=== PATIENT | female | born 1975 ===

== ENCOUNTER 2018-01-23 23:51 | Inpatient (IN) | payer MEDICAID, OTHER ==
--- NOTE | 2018-01-23 23:58 | ED PDOC ---
Arrival/HPI - General Time Seen by Provider: 01/23/18 23:53 Historian: Patient - History of Present Illness Narrative History of Present Illness (Text): 01/23/18 23:54 Tee Martinez is a 42 year female who presents to the Emergency department transferred from [facility] for depression and suicidal ideation tonight. Patient was medically cleared at previous institution and accepted for psychiatric admission by psychiatrist community liaison officer. Patient states she still feels depressed. Patient denies any homicidal ideation, fever, chills, chest pain, shortness of breath, nausea, vomiting, diarrhea, headache, dizziness, or any other complaints. 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 HX: LUMBAR DISC DEGENERATION - Gastrointestinal Hx Gastrointestinal Disorders: Yes Hx Gastroesophageal Reflux: Yes - Surgical History Hx Orthopedic Surgery: Yes (LEFT ANKLE FRACTURE) Hx Tubal Ligation: Yes - Anesthesia Hx Anesthesia: Yes Family/Social History - Physician Review Nursing Documentation Reviewed: Yes Family/Social History: Unknown Family HX Smoking Status: Light Smoker < 10 Cigarettes Daily Allergies/Home Meds Allergies/Adverse Reactions: Allergies No Known Allergies Allergy (Verified 09/21/17 07:48) Home Medications: Home Meds Medication Instructions Recorded Confirmed oxyCODONE [oxyCODONE Immediate 15 mg PO 09/21/17 Release Tab] Review of Systems - Physician Review All systems were reviewed & negative as marked: Yes - Review of Systems Constitutional: Normal. absent: Fevers Eyes: Normal ENT: Normal Respiratory: Normal. absent: SOB, Cough Cardiovascular: Normal. absent: Chest Pain Gastrointestinal: Normal. absent: Abdominal Pain, Diarrhea, Nausea, Vomiting Genitourinary Female: Normal. absent: Dysuria, Frequency, Hematuria, Urine Output Changes Musculoskeletal: Normal. absent: Back Pain, Neck Pain Skin: Normal Neurological: Normal. absent: Headache, Dizziness Endocrine: Normal Hemo/Lymphatic: Normal Psychiatric: Depression, Suicidal Ideation Physical Exam Vital Signs Reviewed: Yes Vital Signs Temp Pulse Resp BP Pulse Ox 01/23/18 23:57 98.2 F 73 18 144/65 95 Temperature: Afebrile Blood Pressure: Normal Pulse: Regular Respiratory Rate: Normal Appearance: Positive for: Well-Appearing, Non-Toxic, Comfortable Pain Distress: None Mental Status: Positive for: Alert and Oriented X 3 - Systems Exam Head: Present: Atraumatic, Normocephalic Pupils: Present: PERRL Extroacular Muscles: Present: EOMI Conjunctiva: Present: Normal Mouth: Present: Moist Mucous Membranes Neck: Present: Normal Range of Motion Respiratory/Chest: Present: Clear to Auscultation, Good Air Exchange. No: Respiratory Distress, Accessory Muscle Use Cardiovascular: Present: Regular Rate and Rhythm, Normal S1, S2. No: Murmurs Abdomen: Present: Normal Bowel Sounds. No: Tenderness, Distention, Peritoneal Signs Back: Present: Normal Inspection Upper Extremity: Present: Normal Inspection. No: Cyanosis, Edema Lower Extremity: Present: Normal Inspection. No: Edema Neurological: Present: GCS=15, CN II-XII Intact, Speech Normal Skin: Present: Warm, Dry, Normal Color. No: Rashes Psychiatric: Present: Alert, Oriented x 3, Normal Insight, Normal Concentration Medical Decision Making ED Course and Treatment: 01/23/18 23:55 Impression: 42 year old female transferred from [facility] for depression and suicidal ideation tonight. Differential Diagnosis included but are not limited to: depression Plan: -- Admission to [facility] Progress Notes: Patient was medically cleared at previous institution and accepted for psychiatric admission by psychiatrist community liaison officer. Pt will be admitted to [facility] for depression and suicidal ideation under Dr. Regan's service. Pt agreeable with plan. - Scribe Statement The provider has reviewed the documentation as recorded by the Ludivina Valdez Provider Scribe Attestation: All medical record entries made by the Scribe were at my direction and personally dictated by me. I have reviewed the chart and agree that the record accurately reflects my personal performance of the history, physical exam, medical decision making, and the department course for this patient. I have also personally directed, reviewed, and agree with the discharge instructions and disposition. Disposition/Present on Arrival - Present on Arrival Any Indicators Present on Arrival: No History of DVT/PE: No History of Uncontrolled Diabetes: No Urinary Catheter: No History of Decub. Ulcer: No History Surgical Site Infection Following: None - Disposition Have Diagnosis and Disposition been Completed?: Yes Diagnosis: Depression, Suicidal ideation Disposition: HOSPITALIZED Disposition Time: 00:10 Patient Plan: Admission Condition: STABLE
[2018-01-24] MEDS ORDERED: Alum-Mag Hydrox-Simethicone Susp (30 mL) PO PRN (01:31)
[2018-01-24] MEDS ORDERED: Magnesium Hydroxide Susp 30 ml UD PO PRN (01:31)
[2018-01-24 02:27] VITALS: O2SAT 97
--- NOTE | 2018-01-24 06:10 | PCM.BM ---
<Trung Gonzalez O - Last Filed: 01/24/18 06:04> Treatment Plan Problems - Problems identified on initial assessmt depression Date Initiated: 01/24/18 Time Initiated: 01:30 Assessment reference: NA Status: Active Priority: 1 Substance abuse Date Initiated: 01/24/18 Time Initiated: 01:40 Assessment reference: NA Status: Monitor Priority: 2 Treatment assets and liabiliti Patient Assests: cooperative, ADL independent Patient Liabilities: poor support system, relationship conflicts, substance abuse - Milieu Protocol Maintain good personal hygiene: daily Encourage regular showers, daily Remind patient to perform daily oral care, daily Assist patient to perform ADL's Maintain personal safety: daily Educate patient to report safety concerns to staff, daily Monitor environment for contraband/sharps Medication safety: Monitor for expected outcome, potential side effects: daily, Assess barriers to learning: daily, Assess readiness for medication education: daily Family Contact Family involvement: Family/SO is involved Family contact: Patient agrees to contact Family contact name: Arianne Gasca - Goals for Treatment Patient goals for treatment: To get my life back Discharge/Continuing Care - Education Needs Education Needs: Patient Medication, Patient Diagnosis/Disease Process, Patient Coping Skills - Discharge Discharge Criteria: Free of Suicidal thoughts <Subha Regan A - Last Filed: 01/24/18 15:28> - Diagnosis (1) MDD (major depressive disorder) Status: Acute Interventions: 01/24/18 15:31 Psychoeducation Psychopharmacology/adjustment of medications as needed/ monitoring possible side effects Evaluate pt on daily basis Compliance with medications and follow up appointments Suicide and homicide risk assessment and prevention Relapse prevention Reduction of symptoms Improve functional status Family involvement As outpatient: cognitive behavioral therapy (2) LUISANA (generalized anxiety disorder) Status: Acute Interventions: 01/24/18 15:31 Psychoeducation Psychopharmacology/adjustment of medications as needed/ monitoring possible side effects Evaluate pt on daily basis Discussion of importance of being compliant with medications and follow up appointments Suicide and homicide risk assessment and prevention, coping strategies, safety plan Reduction of symptoms Relaxation techniques and breathing exercises Improve functional status Family involvement Cognitive behavioral therapy as outpatient (3) Panic disorder Status: Acute Interventions: 01/24/18 15:31 Psychoeducation Psychopharmacology/adjustment of medications as needed/ monitoring possible side effects Evaluate pt on daily basis Discussion of importance of being compliant with medications and follow up appointments Suicide and homicide risk assessment and prevention, coping strategies, safety plan Reduction of symptoms Relaxation techniques and breathing exercises Improve functional status Family involvement Cognitive behavioral therapy as outpatient (4) Marijuana abuse Status: Acute Interventions: 01/24/18 15:31 education counseling <Mary Wills Y - Last Filed: 01/25/18 08:02> Family Contact Family contact name: Arianne Gasca(mother) Neil Lopez(daughter) Family contacted how many times per week?: 2 - Outside Agency [employer] Care involvment: Information-sharing Agency contact name: [employer]
[2018-01-24 07:41] LABS: GLUCOSE,FASTING 127 mg/dL (65-110); HDL CHOLESTEROL 43 mg/dL (29-60)
[2018-01-24 07:49] LABS: LDL CHOLESTEROL 101 mg/dL (0-129)
[2018-01-24] MEDS: Lidocaine 5% Patch TD SCH (14:24)
--- NOTE | 2018-01-24 15:27 | PCM.PSYCH ---
Initial Psychiatric Evaluation - Initial Psychiatric Evaluation Type of Admission: Voluntary Legal Status: Capacity (pt has capacity to sign consent for treatment) Chief Complaint (in patient's own words): "I was not doing well, I took medications to calm myself, I feel stupid now, I should have known better..." Patient's Reaction to Hospitalization: pt was transferred from [facility] for evaluation of depressive symptoms possible suicidal attempt. History of Present Illness and Precipitating Events: shortly patient is 42-year old Female, with reported history of depression and anxiety, denied previous psychiatric admissions, self reported suicidal attempt at age of 11, was transferred from the [facility] where pt was brought by her sister for evaluation of intentional overdose on Seroquel, r/o suicidal attempt, pt lives with her mother, pt has multiple medical problems, pt is in the process of obtaining for disability, pt currently under care of psychiatrist who prescribed zyprexa and Lexapro as well as Ambien. Pt needs further evaluation and stabilization, medication adjustment. pt was seen and examined, transfer paper from [facility] reviewed, labs reviewed (UA was positive for cannabis, pt is not , CBC and CMP wnl). At the treatment team meeting, presented to have acceptable personal hygiene, obese, seems to be careless about her appearance, pt has good ADLs, was emotionally labile, pt was smiling then was very tearful. pt said she was compliant with zyprexa and Lexapro but "I asked my doctor to change it, but he refused", pt said that one week ago she broke up with her boyfriend of 4years, pt said she was not able to work because of her Rheumatoid arthritis and because of that she was struggling financially. pt said for the past week she was feeling more depressed, hopeless, helpless, worthless, guilty , "I was not doing well, I was not able to sleep at all", pt said her mind was racing, pt was not able to relax. pt said she was feeling more anxious than usual, "I started to have some twitching, it is due to my anxiety", pt also said her panic attacks from every other day became "daily". pt denied h/o abuse, denied experience of any trauma. pt said that she was compliant with meds, but "still I was not able to relax", pt said her mother also has h/o depression and she was prescribed Seroquel 25mg , "I started to take one tablet at the time, I wanted to relax, but not able to ", pt said she did not have intent or plan to kill self or harm self, pt said she took more than 5 pills then pt said "I was very confused, I remember my mother screamed at me, then she called my son, he came over, screamed at me too , now I am afraid he will not let my grand son to visit me" (as per [facility] pt overdosed after argument with son, but pt denied, said her son was screaming at pt after he had to know that pt overdosed on meds). pt adamantly denied that she wanted to harm/kill self. pt seems to be remorseful "I feel stupid, I should have known better". pt denied thoughts of harming self for the past 4weeks, pt reported to have one suicidal attempt at age of 11or12, "I was madly in love, my father was upset over that, I decided to overdose because my father's opinion was very important to me". pt denied psychotic symptoms, pt does not look to be responding to internal stimuli, denied hearing voices denied seeing things. no manic symptoms elicited or reported. pt reported that she smokes about one blunt of marijuana a day, pt denied any heavy drug use, denied alcohol consumption. pt smokes about 1/2 pack a day, nicotine patch offered, counseling provided. past psych h/o: PT reports her psychiatrist is Dr. Berry at [facility], one suicidal attempt see above. pt said she fills meds in [facility] [phone] meds confirmed Gabapentin 600 mg twice a daily Ambien 10 mg at the night Lexapro 20 mg daily Naproxen 550 twice a day Lisinopril and hydrochlorothiazide Lidoderm vistaril Patient was on Zyprexa 10 Lexapro 20 mg daily Zanaflex 4 mg 3 times a day pt c/o diarrhea, medical team called for consult. Past medical h/o: as per [facility] record pt had 5 suicidal attempts, but pt denied (pt seems to be a good and reliable historian). pt denied previous psychiatric admissions. Medical h/o: HTN, obesity, OA, pt is on injectable form of medication, pt had a right knee operation a week ago, L-spine disks herniations, chronic back pain. Family h/o: mother has depression. patient reports gave consent to contact her sister, Arianne Gasca and daughter , Neil Lopez([phone]). Lab Results 01/24/18 07:00: TSH 3rd Generation 0.41 L 01/24/18 07:00: Fasting Glucose 127 H, Triglycerides 112, Cholesterol 168, LDL Cholesterol Direct 101, HDL Cholesterol 43 Vital Signs Temp Pulse Resp BP Pulse Ox 01/24/18 14:25 90 174/115 H 01/24/18 07:37 98.4 F 73 20 106/65 01/24/18 02:42 97.6 F 73 20 140/69 01/24/18 01:30 75 18 135/68 97 01/23/18 23:57 98.2 F 73 18 144/65 95 Current Medications: Active Medications Generic Name Dose Route Start Last Admin Trade Name Freq PRN Reason Stop Dose Admin Acetaminophen 650 mg 01/24/18 01:31 Tylenol 325mg Tab PO Q4H PRN Pain, Mild (1-3) Al Hydrox/Mg Hydrox/Simethicone 30 ml 01/24/18 01:31 Maalox Plus 30 Ml PO DAILY PRN Upset Stomach Aripiprazole 2.5 mg 01/24/18 22:00 Abilify PO AMHS DWAYNE Fluoxetine HCl 10 mg 01/24/18 13:00 01/24/18 14:24 Prozac PO 10 mg DAILY DWAYNE Administration Gabapentin 600 mg 01/24/18 13:00 01/24/18 14:24 Neurontin PO 600 mg TID DWAYNE Administration Protocol Hydrochlorothiazide 25 mg 01/24/18 13:00 01/24/18 14:25 Hydrodiuril PO 25 mg DAILY DWAYNE Administration Lidocaine 1 ea 01/24/18 13:15 01/24/18 14:24 Lidoderm TD 1 ea DAILY DWAYNE Administration Lisinopril 20 mg 01/24/18 13:15 01/24/18 14:25 Zestril PO 20 mg DAILY DWAYNE Administration Lorazepam 0.5 mg 01/24/18 16:00 Ativan PO BID DWAYNE Protocol Magnesium Hydroxide 30 ml 01/24/18 01:31 Milk Of Magnesia PO DAILY PRN Constipation Naproxen 550 mg 01/24/18 16:00 Anaprox Ds PO BID DWAYNE Nicotine 1 patch 01/24/18 12:45 01/24/18 14:23 Nicoderm Cq TD 1 patch DAILY DWAYNE Administration Tizanidine HCl 4 mg 01/24/18 13:00 01/24/18 14:24 Zanaflex PO 4 mg TID DWAYNE Administration Tramadol HCl 50 mg 01/24/18 13:01 01/24/18 14:31 Ultram PO 50 mg TID PRN Administration severe pain >=7/10 Zolpidem Tartrate 10 mg 01/24/18 13:17 Ambien PO HS PRN Insomnia Protocol pt wants to change some meds abilify and prozac discussed with pt, risk, benefits and alternatives discussed with pt. Past Psychiatric History - Past Psychiatric History Previous Treatment History: None Prior Professional Help: see HPI Prior Psychiatric Treatment: see HPI At what hospital: see HPI Duration: see HPI Nature of Treatment: see HPI Explanation of prior treatment: see HPI History of Abuse: see HPI pt denied any abuse History of ETOH/Drug Use: see HPI History of Family Illness: see HPI Pertinent Medical Hx (Current Medical&Sleep Prob, Allergies): Allergies Allergy/AdvReac Type Severity Reaction Status Date / Time No Known Allergies Allergy Verified 01/24/18 05:24 oxyCODONE [oxyCODONE Immediate Release Tab] 15 mg PO BID PRN 09/21/17 pt said that she was prescribed oxycodone after her knee surgery, but not any longer. Review of Systems - Review of Systems Systems not reviewed;Unavailable: Acuity of Condition - EENT Eyes: As Per HPI Ears: As Per HPI Nose/Mouth/Throat: As Per HPI - Breasts Breasts: As Per HPI - Cardiovascular Cardiovascular: As Per HPI - Respiratory Respiratory: As Per HPI - Gastrointestinal Gastrointestinal: As Per HPI - Genitourinary Genitourinary: As Per HPI - Reproductive: Female Reproductive:Female: As Per HPI - Menstruation Menstruation: As Per HPI - Musculoskeletal Musculoskeletal: As Par HPI - Integumentary Integumentary: As Per HPI - Neurological Neurological: As Per HPI - Psychiatric Psychiatric: As Per HPI - Endocrine Endocrine: As Per HPI - Hematologic/Lymphatic Hematologic: As Per HPI Mental Status Examination - Personal Presentation Personal Presentation: Looks stated age - Affect Affect: Other (labile) - Motor Activity Motor Activity: Calm - Reliability in Providing Information Reliability in Providing Information: Fair - Speech Speech: Organized - Mood Mood: Depressed, Anxious - Formal Thought Process Formal Thought Process: No Impairment - Obsessions/Compulsions Obsessions: None Compulsions: None - Cognitive Functions Orientation: Person, Place, Situation, Time Sensorium: Alert Attention/Concentration: Easily distracted Estimate of Intelligence: Average Judgement: Intact, as evidence by: Insight regarding need for hospitalization - Risk Risk: Self-mutilation, Diminished functioning - Strength & Assets Inventory Strength & Assets Inventory: Family support, Spiritual affiliations, Life experience, Cooperative - Limitations Limitations: Other (medical issues) DSM 5 DX - DSM 5 DSM 5 Diagnosis: r/o MDD r/o adjustment disorder r/o bipolar spectrum r/o panic disorder with agoraphobia r/o LUISANA cannabis abuse - Recommended/Plan of Treatment Treatment Recommendations and Plan of Treatment: Milieu/structure/supportive therapy Medical consult was called for diarrhea, no nausea, no vomiting medications confirmed by pharmacy see HPI zyperxa and lexapro d/c prozac 10mg po daily for depression and anxiety abilify for mood stabilization ambien will be continued ativan 0.5mg po bid for anxiety will d/c vistaril will call orthopedic doctor pt is on injectable form of meds in her knee weekly SW consultation for discharge plan and social issues Family involvement Follow up on labs Will monitor closely Pt was educated about risk/benefits and alternatives of medications, coping strategies (safety plan, suicide prevention), relapse prevention, importance of follow up with psychiatrist and therapist, stay away from drugs/alcohol/smoking Projected ELOS: 7days Prognosis: guarded Discharge Plan and Discharge Criteria: Pt will be not depressed or manic, will be more hopeful, will be not psychotic or anxious, will be not having thoughts of harming self or others, will be tolerating medications well, will not have major side effects, will be able to function, will not pose threat to self or others. - Smoking Cessation Smoking Cessation Initiated: Yes
[2018-01-24] MEDS: Naproxen 550 mg Tab PO SCH (17:33)
--- NOTE | 2018-01-25 03:57 | CON ---
DATE: 01/24/2018 ORTHOPEDIC CONSULT LOCATION: Room number is 514, bed 1. REQUESTED BY: Subha Regan MD HISTORY OF PRESENT ILLNESS: The patient is a 42-year-old female admitted on 01/24/2018 with pain in her right worse than left knee. Past history is that she has rheumatoid arthritis and psoriatic arthritis. She has been postop about 3-4 weeks for arthroscopy of her right knee for which she has had a torn meniscus. There is no undue swelling and that she has pain when she ambulates and has to take medicines for rheumatoid arthritis. I am going to just get standing x-rays of both knees to see how much joint space narrowing she has because she said she had meniscus tear from surgery and I removed it and she is currently 42 years old, but the knees clinically look fine, is little overweight. We are going to send her for therapy. I am not going to inject the knees because of the surgery she just had and the past history of rheumatoid arthritis and was on immunosuppressives at times. So, send her to therapy, investigate the knee pain with x-rays standing and follow her with physical therapy. FINAL DIAGNOSES: Rheumatoid arthritis with knee pain, right worse than the left. We are going to do x-rays of both knees and physical therapy. Shar Shelby DO
[2018-01-25 07:47] LABS: BASO # 0.03 K/mm3 (0.0-2.0); BASO % 0.3 % (0.0-3.0); EOS # 0.2 (0.0-0.7); EOS % 2.5 % (1.5-5.0); GRAN # 4.83 (1.4-6.5); GRAN % 54.9 % (50.0-68.0); LYMPH % 34.2 % (22.0-35.0); MEAN CORPUSCULAR HEMOGLOBIN 30.1 pg (25.0-35.0); MEAN CORPUSCULAR HGB CONC 33.1 g/dl (31.0-37.0); MEAN PLATELET VOLUME 10.3 fl (7.0-11.0); MONO # 0.7 (0.1-0.6); MONO % 8.1 % (1.0-6.0); RBC 4.65 10^6/uL (3.5-6.1); WHITE BLOOD COUNT 8.8 10^3/ul (4.5-11.0)
[2018-01-25 08:01] LABS: ALB/GLOB RATIO 1.2 (1.1-1.8); ALBUMIN 4.3 g/dL (3.0-4.8); ALT/SGPT 64 U/L (7-56); AST/SGOT 36 U/L (14-36); BLOOD UREA NITROGEN 11 mg/dL (7-21); CALCIUM 9.6 mg/dL (8.4-10.5); GFR AFRICAN-AMERICAN > 60; GFR NON-AFRICAN AMERICAN > 60
[2018-01-25] MEDS: Naproxen 550 mg Tab PO SCH ×2 (08:44→17:38)
[2018-01-25] MEDS: Lidocaine 5% Patch TD SCH (08:46)
--- NOTE | 2018-01-25 09:53 | RAD ---
PROCEDURE: AP standing bilateral knees HISTORY: pain knees bilat COMPARISON: None available TECHNIQUE: Single AP standing radiograph of each knee submitted. FINDINGS: Mild narrowing of the medial joint compartment of the right knee. No significant narrowing of the medial compartment of the left knee. Lateral compartment preserved bilaterally. Grossly limited examination. Unable to evaluate patellofemoral articulation. Unable to evaluate for joint effusion. IMPRESSION: Mild medial osteoarthritis of the right knee.
[2018-01-25 10:36] LABS: FREE T4 0.91 ng/dL (0.78-2.19)
--- NOTE | 2018-01-25 13:39 | PCM.PYCHPN ---
Psychiatric Progress Note - Psychiatric Progress Note Patient seen today, length of contact: 30min Patient Chief Complaint: "I am doing little better, my family came over yesterday, it was a good visit" Problems Identified/Issues Discussed: Suicide/ homicide prevention, past psychiatric h/o, current psychiatric symptoms , medical problems, risk/benefits and alternatives of medications, medications compliance, coping strategies, substance abuse h/o, relapse prevention, importance of follow up with psychiatrist and therapist, discharge plan. Medical Problems: HTN, obesity, OA, pt is on injectable form of medication, pt had a right knee operation a week ago, L-spine disks herniations, chronic back pain. pt c/o diarrhea, pt was seen by medical team, consult appreciated Diagnostic Results: 01/25/18 07:20 01/25/18 07:20 Lab Results 01/25/18 08:00: Free T4 0.91, TSH 3rd Generation 0.60 01/25/18 07:20: Sodium 140, Potassium 3.8, Chloride 105, Carbon Dioxide 23, Anion Gap 16, BUN 11, Creatinine 0.6 L, Est GFR ( Amer) > 60, Est GFR ( Non-Af Amer) > 60, Random Glucose 133 H, Calcium 9.6, Total Bilirubin 0.6, AST 36, ALT 64 H, Alkaline Phosphatase 112, Total Protein 7.8, Albumin 4.3, Globulin 3.5, Albumin/Globulin Ratio 1.2 01/25/18 07:20: WBC 8.8, RBC 4.65, Hgb 14.0, Hct 42.3, MCV 91.0, MCH 30.1, MCHC 33.1, RDW 14.0, Plt Count 291, MPV 10.3, Gran % 54.9, Lymph % (Auto) 34.2, [place] % (Auto) 8.1 H, Eos % (Auto) 2.5, Baso % (Auto) 0.3, Gran # 4.83, Lymph # (Auto ) 3.0, [place] # (Auto) 0.7 H, Eos # (Auto) 0.2, Baso # (Auto) 0.03 01/24/18 07:00: RPR Nonreactive 01/24/18 07:00: TSH 3rd Generation 0.41 L 01/24/18 07:00: Fasting Glucose 127 H, Triglycerides 112, Cholesterol 168, LDL Cholesterol Direct 101, HDL Cholesterol 43 Vital Signs Temp Pulse Resp BP Pulse Ox 01/25/18 08:44 74 124/78 01/25/18 06:54 97.6 F 74 18 127/78 01/24/18 16:00 80 129/84 01/24/18 14:25 90 174/115 H 01/24/18 07:37 98.4 F 73 20 106/65 01/24/18 02:42 97.6 F 73 20 140/69 01/24/18 01:30 75 18 135/68 97 01/23/18 23:57 98.2 F 73 18 144/65 95 DSM 5 Symptoms Update: shortly patient is 42-year old Female, with reported history of depression and anxiety, denied previous psychiatric admissions, self reported suicidal attempt at age of [age], was transferred from the [facility] where pt was brought by her sister for evaluation of intentional overdose on Seroquel, r/o suicidal attempt, pt lives with her mother, pt has multiple medical problems, pt is in the process of obtaining for disability, pt currently under care of psychiatrist who prescribed zyprexa and Lexapro as well as Ambien. Pt needs further evaluation and stabilization, medication adjustment. pt was seen and examined, discussed with staff, patient was seen at the dining area today, patient presented anxious, depressed, but with some affect activity. Patient reported that she tolerates new psychotropic medications well , no side effects observed or reported. Patient reported that she slept well, patient reported that her family came over yesterday and she feels "good about that visit." Patient has periods of being tearful, transient hopelessness, but patient showed some improvement with her presentations. pt reported to feel anxious, asked for ativan to be increased. Patient reported that after she had a good night sleep, her mind is "not racing ". as per staff, patient started to attend groups, visible in the unit, no agitation, no aggression. Impression: DSM 5 Diagnosis: r/o MDD r/o adjustment disorder r/o bipolar spectrum r/o panic disorder with agoraphobia r/o LUISANA cannabis abuse Medication Change: Yes (abilify increased, prozac and ativan increased) Medical Record Reviewed: Yes Consults ordered or reviewed: medical consult appreciated, discussed with medical receptionist biller today orthopedic consult appreciated, discussed with Mental Status Examination - Cognitive Function Orientation: Person, Place, Situation, Time Memory: Intact Attention: Poor Concentration: Poor Association: WNL Fund of Knowledge: WNL - Mood Mood: Depressed, Anxious - Affect Affect: Other (labile) - Speech Speech: Appropriate - Formal Thought Process Formal Thought Process: No Impairment - Suicidal Ideation Suicidal Ideation: No - Homicidal Ideation Homicidal Ideation: No Goal/Treatment Plan - Goal/Treatment Plan Need for Continued Stay: Remain at risks for inpatient hospitalization, Severe depression anxiety, Discharge may exacerbated symptoms, Severe functional impairment Progress Toward Problem(s) and Goals/Treatment Plan: Milieu/structure/supportive therapy Medical consult was called for diarrhea, no nausea, no vomiting medications confirmed by pharmacy see HPI zyperxa and lexapro d/c prozac 20mg po daily for depression and anxiety abilify will be increased 5mg po bid for mood stabilization ambien will be continued ativan 0.5mg po tid for anxiety will d/c vistaril will call orthopedic doctor pt is on injectable form of meds in her knee weekly consultation for discharge plan and social issues Family involvement Follow up on labs Will monitor closely Pt was educated about risk/benefits and alternatives of medications, coping strategies (safety plan, suicide prevention), relapse prevention, importance of follow up with psychiatrist and therapist, stay away from drugs/alcohol/smoking Estimated Date of D/C: 01/31/18
--- NOTE | 2018-01-25 14:30 | CP.PCM.CON ---
<Audie Negron - Last Filed: 01/25/18 13:49> History of Present Illness - History of Present Illness History of Present Illness: INTERNAL MEDICINE CONSULT NOTE: Ms. Martinez is a 42 year old female with a past medical history significant for RA and HTN who presented to the [facility] at [facility] with depression and questionable suicide attempt. Patient was transferred from [facility]. Internal Medicine was consulted after patient complained of several episodes of non- bloody diarrhea. Patient reports that she had four episodes of diarrhea yesterday and two so far today. She endorses associated nausea without vomiting and recent hospitalization but denies any sick contacts, recent antibiotic use, diarrhea waking her up from sleep, abdominal pain, melena, hematochezia, vaginal discharge, or any pain with urination. She denies ever having diarrhea at this frequency in the past but does report that she has had isolated episodes of diarrhea periodically in the past that were self limited. She otherwise denies any fever, chills, headache, chest pain, palpitations, SOB, cough, skin changes, weight loss, or any numbness/tingling/weakness of any extremity. PMH: RA, HTN, Depression and Anxiety PSH: Tubal Ligation, Left Ankle Repair and Right Meniscal Repair (two weeks ago) Family History: Father- from coronary thrombus at age 42; Mother- Multiple CVA; Denies any history of CRC or IBD Social History: Current half PPD smoker with a 4 year pack smoking history and marijuana via pipe three to four times per week but denies any alcohol or further illicit drug abuse; Lives with her son Allergies: NKDA Home Medications: As per MAR Review of Systems - Review of Systems Review of Systems: As per HPI, otherwise negative Past Patient History - Infectious Disease Hx of Infectious Diseases: None - Past Medical History & Family History Past Medical History?: Yes - Past Social History Smoking Status: Light Smoker < 10 Cigarettes Daily - CARDIAC Hx Hypertension: Yes - MUSCULOSKELETAL/RHEUMATOLOGICAL Hx Arthritis: Yes Hx Rheumatoid Arthritis: Yes - GASTROINTESTINAL Hx Gastrointestinal Disorders: Yes Hx Gastroesophageal Reflux: Yes - PSYCHIATRIC Hx Depression: Yes Hx Substance Use: Yes - SURGICAL HISTORY Hx Orthopedic Surgery: Yes (LEFT ANKLE FRACTURE) Hx Tubal Ligation: Yes - ANESTHESIA Hx Anesthesia: Yes Meds Allergies/Adverse Reactions: Allergies Allergy/AdvReac Type Severity Reaction Status Date / Time No Known Allergies Allergy Verified 01/24/18 05:24 - Medications Medications: Current Medications Acetaminophen (Tylenol 325mg Tab) 650 mg PO Q4H PRN PRN Reason: Pain, Mild (1-3) Al Hydrox/Mg Hydrox/Simethicone (Maalox Plus 30 Ml) 30 ml PO DAILY PRN PRN Reason: Upset Stomach Aripiprazole (Abilify) 5 mg PO AMHS [facility] Fluoxetine HCl (Prozac) 20 mg PO DAILY [facility] Gabapentin (Neurontin) 600 mg PO TID [facility] PRN Reason: Protocol Last Admin: 01/25/18 08:45 Dose: 600 mg Hydrochlorothiazide (Hydrodiuril) 25 mg PO DAILY [facility] Last Admin: 01/25/18 08:45 Dose: 25 mg Lidocaine (Lidoderm) 1 ea TD DAILY [facility] Last Admin: 01/25/18 08:46 Dose: 1 ea Lisinopril (Zestril) 20 mg PO DAILY [facility] Last Admin: 01/25/18 08:44 Dose: 20 mg Lorazepam (Ativan) 0.5 mg PO TID [facility] PRN Reason: Protocol Magnesium Hydroxide (Milk Of Magnesia) 30 ml PO DAILY PRN PRN Reason: Constipation Naproxen (Anaprox Ds) 550 mg PO BID [facility] Last Admin: 01/25/18 08:44 Dose: 550 mg Nicotine (Nicoderm Cq) 1 patch TD DAILY [facility] Last Admin: 01/25/18 08:46 Dose: 1 patch Tizanidine HCl (Zanaflex) 4 mg PO TID [facility] Last Admin: 01/25/18 08:46 Dose: 4 mg Tramadol HCl (Ultram) 50 mg PO TID PRN PRN Reason: severe pain >=7/10 Last Admin: 01/25/18 08:43 Dose: 50 mg Zolpidem Tartrate (Ambien) 10 mg PO HS PRN; Protocol PRN Reason: Insomnia Last Admin: 01/24/18 21:21 Dose: 10 mg Physical Exam - Constitutional Appears: Non-toxic, No Acute Distress - Head Exam Head Exam: ATRAUMATIC, NORMOCEPHALIC - Eye Exam Eye Exam: Normal appearance Pupil Exam: NORMAL ACCOMODATION - ENT Exam ENT Exam: Mucous Membranes Moist, Normal Exam - Neck Exam Neck exam: Positive for: Full Rom, Normal Inspection. Negative for: Lymphadenopathy, Tenderness - Respiratory Exam Respiratory Exam: Clear to Auscultation Bilateral, NORMAL BREATHING PATTERN. absent: Accessory Muscle Use, Chest Wall Tenderness, Decreased Breath Sounds, Prolonged Expiratory Phase, Rales, Rhonchi, Wheezes, Respiratory Distress, Stridor - Cardiovascular Exam Cardiovascular Exam: REGULAR RHYTHM, RRR, +S1, +S2. absent: Bradycardia, Tachycardia, Clicks, Diastolic murmur, Gallop, Irregular Rhythm, JVD, Rubs, +S4 , Systolic Murmur - GI/Abdominal Exam GI & Abdominal Exam: absent: Distended, Firm, Guarding, Hernia, Rebound, Rigid, Tenderness - Extremities Exam Extremities exam: Positive for: full ROM, normal capillary refill, normal inspection, pedal pulses present. Negative for: calf tenderness, joint swelling , pedal edema, tenderness - Back Exam Back exam: NORMAL INSPECTION - Neurological Exam Neurological exam: Alert, CN II-XII Intact, Normal Gait, Oriented x3, Reflexes Normal - Psychiatric Exam Psychiatric exam: Normal Affect, Normal Mood - Skin Skin Exam: Dry, Intact, Normal Color, Warm Results - Vital Signs Recent Vital Signs: Last Vital Signs Temp 97.6 F 01/25/18 06:54 Pulse 74 01/25/18 08:44 Resp 18 01/25/18 06:54 BP 124/78 01/25/18 08:44 Pulse Ox 97 01/24/18 01:30 - Labs Result Diagrams: 01/25/18 07:20 01/25/18 07:20 Labs: Laboratory Results - last 24 hr 01/24/18 01/25/18 01/25/18 07:00 07:20 07:20 WBC 8.8 RBC 4.65 Hgb 14.0 Hct 42.3 MCV 91.0 MCH 30.1 MCHC 33.1 RDW 14.0 Plt Count 291 MPV 10.3 Gran % 54.9 Lymph % (Auto) 34.2 [place] % (Auto) 8.1 H Eos % (Auto) 2.5 Baso % (Auto) 0.3 Gran # 4.83 Lymph # (Auto) 3.0 [place] # (Auto) 0.7 H Eos # (Auto) 0.2 Baso # (Auto) 0.03 Sodium 140 Potassium 3.8 Chloride 105 Carbon Dioxide 23 Anion Gap 16 BUN 11 Creatinine 0.6 L Est GFR ( Amer) > 60 Est GFR (Non-Af Amer) > 60 Random Glucose 133 H Calcium 9.6 Total Bilirubin 0.6 AST 36 ALT 64 H Alkaline Phosphatase 112 Total Protein 7.8 Albumin 4.3 Globulin 3.5 Albumin/Globulin Ratio 1.2 Free T4 TSH 3rd Generation RPR Nonreactive 01/25/18 08:00 WBC RBC Hgb Hct MCV MCH MCHC RDW Plt Count MPV Gran % Lymph % (Auto) [place] % (Auto) Eos % (Auto) Baso % (Auto) Gran # Lymph # (Auto) [place] # (Auto) Eos # (Auto) Baso # (Auto) Sodium Potassium Chloride Carbon Dioxide Anion Gap BUN Creatinine Est GFR ( Amer) Est GFR (Non-Af Amer) Random Glucose Calcium Total Bilirubin AST ALT Alkaline Phosphatase Total Protein Albumin Globulin Albumin/Globulin Ratio Free T4 0.91 TSH 3rd Generation 0.60 RPR Assessment & Plan - Assessment and Plan (Free Text) Assessment: 42 year old female with a past medical history significant for RA and HTN who presented to the B[facility] at [facility] with depression and questionable suicide attempt. Patient was transferred from [facility]. Internal Medicine was consulted after patient complained of several episodes of non-bloody diarrhea. Plan: 1. Diarrhea -Vital Signs, CBC and CMP reviewed -C. Diff T/A, FOBT, and repeat thyroid studies pending -Will hold anti-diarrhea medications until infectious causes are ruled out -Encouraged oral hydration -Will follow up results of previously mentioned pending studies and address results accordingly 2. RA -Knee X-Ray reviewed -Continue pain control as per Pscyh -Further management as per Ortho 3. HTN -Continue HCTZ and Lisinopril Patient seen and case discussed with attending, Dr. Rodney Narvaez. We will continue to follow patient until results of pending studies have finalized. Thank you for allowing us to participate in the care of this patient. - Date & Time Date: 01/25/18 Time: 14:31 <Rodney Narvaez - Last Filed: 01/25/18 16:57> Meds - Medications Medications: Current Medications Acetaminophen (Tylenol 325mg Tab) 650 mg PO Q4H PRN PRN Reason: Pain, Mild (1-3) Al Hydrox/Mg Hydrox/Simethicone (Maalox Plus 30 Ml) 30 ml PO DAILY PRN PRN Reason: Upset Stomach Aripiprazole (Abilify) 5 mg PO AMHS [facility] Fluoxetine HCl (Prozac) 20 mg PO DAILY [facility] Gabapentin (Neurontin) 600 mg PO TID [facility] PRN Reason: Protocol Last Admin: 01/25/18 13:48 Dose: 600 mg Hydrochlorothiazide (Hydrodiuril) 25 mg PO DAILY [facility] Last Admin: 01/25/18 08:45 Dose: 25 mg Lidocaine (Lidoderm) 1 ea TD DAILY [facility] Last Admin: 01/25/18 08:46 Dose: 1 ea Lisinopril (Zestril) 20 mg PO DAILY [facility] Last Admin: 01/25/18 08:44 Dose: 20 mg Lorazepam (Ativan) 0.5 mg PO TID [facility] PRN Reason: Protocol Magnesium Hydroxide (Milk Of Magnesia) 30 ml PO DAILY PRN PRN Reason: Constipation Naproxen (Anaprox Ds) 550 mg PO BID [facility] Last Admin: 01/25/18 08:44 Dose: 550 mg Nicotine (Nicoderm Cq) 1 patch TD DAILY [facility] Last Admin: 01/25/18 08:46 Dose: 1 patch Tizanidine HCl (Zanaflex) 4 mg PO TID [facility] Last Admin: 01/25/18 13:48 Dose: 4 mg Tramadol HCl (Ultram) 50 mg PO TID PRN PRN Reason: severe pain >=7/10 Last Admin: 01/25/18 16:30 Dose: 50 mg Zolpidem Tartrate (Ambien) 10 mg PO HS PRN; Protocol PRN Reason: Insomnia Last Admin: 01/24/18 21:21 Dose: 10 mg Results - Vital Signs Recent Vital Signs: Last Vital Signs Temp 97.6 F 01/25/18 06:54 Pulse 84 01/25/18 16:00 Resp 18 01/25/18 06:54 BP 116/63 01/25/18 16:00 Pulse Ox 97 01/24/18 01:30 - Labs Result Diagrams: 01/25/18 07:20 01/25/18 07:20 Labs: Laboratory Results - last 24 hr 01/24/18 01/25/18 01/25/18 07:00 07:20 07:20 WBC 8.8 RBC 4.65 Hgb 14.0 Hct 42.3 MCV 91.0 MCH 30.1 MCHC 33.1 RDW 14.0 Plt Count 291 MPV 10.3 Gran % 54.9 Lymph % (Auto) 34.2 [place] % (Auto) 8.1 H Eos % (Auto) 2.5 Baso % (Auto) 0.3 Gran # 4.83 Lymph # (Auto) 3.0 [place] # (Auto) 0.7 H Eos # (Auto) 0.2 Baso # (Auto) 0.03 Sodium 140 Potassium 3.8 Chloride 105 Carbon Dioxide 23 Anion Gap 16 BUN 11 Creatinine 0.6 L Est GFR ( Amer) > 60 Est GFR (Non-Af Amer) > 60 Random Glucose 133 H Calcium 9.6 Total Bilirubin 0.6 AST 36 ALT 64 H Alkaline Phosphatase 112 Total Protein 7.8 Albumin 4.3 Globulin 3.5 Albumin/Globulin Ratio 1.2 Free T4 TSH 3rd Generation RPR Nonreactive 01/25/18 08:00 WBC RBC Hgb Hct MCV MCH MCHC RDW Plt Count MPV Gran % Lymph % (Auto) [place] % (Auto) Eos % (Auto) Baso % (Auto) Gran # Lymph # (Auto) [place] # (Auto) Eos # (Auto) Baso # (Auto) Sodium Potassium Chloride Carbon Dioxide Anion Gap BUN Creatinine Est GFR ( Amer) Est GFR (Non-Af Amer) Random Glucose Calcium Total Bilirubin AST ALT Alkaline Phosphatase Total Protein Albumin Globulin Albumin/Globulin Ratio Free T4 0.91 TSH 3rd Generation 0.60 RPR Attending/Attestation - Attestation I have personally seen and examined this patient.: Yes I have fully participated in the care of the patient.: Yes I have reviewed all pertinent clinical information: Yes Notes (Text): I have seen and examined the patient at bedside. Agree with the above note with the following additions/ exceptions: Briefly this is 42 year old female with a past medical history significant for RA, s/p Right knee meniscus repair, marijuana use, HTN who was admitted to psych unit for evaluation of depression and questionable suicide attempt. Medical consult was called for management of diarrhea. She had 4 episodes of BM yesterday and had only 1 today. Will hold mag oxide. Patient appears well hydrated. Appetite is good. Denies any nausea, vomiting, abdominal pain and denies eating unusual food. No sick contacts. VS are all stable. Will send stool for cdiff. Continue other medications. Repeat TFTs were normal. Counselling provided regarding marijuana use. Upon discharge patient will follow up with PMD of choice. Dr Rodney Narvaez
[2018-01-26] MEDS: Naproxen 550 mg Tab PO SCH ×2 (09:22→17:58)
[2018-01-26] MEDS: Lidocaine 5% Patch TD SCH (09:23)
--- NOTE | 2018-01-26 13:42 | PCM.PYCHPN ---
Psychiatric Progress Note - Psychiatric Progress Note Patient seen today, length of contact: 30min Patient Chief Complaint: "I am feeling anxious" Problems Identified/Issues Discussed: Suicide/ homicide prevention, past psychiatric h/o, current psychiatric symptoms , medical problems, risk/benefits and alternatives of medications, medications compliance, coping strategies, substance abuse h/o, relapse prevention, importance of follow up with psychiatrist and therapist, discharge plan. Medical Problems: HTN, obesity, OA, pt is on injectable form of medication, pt had a right knee operation a week ago, L-spine disks herniations, chronic back pain. pt c/o diarrhea, pt was seen by medical team, consult appreciated Diagnostic Results: 01/25/18 07:20 01/25/18 07:20 Lab Results 01/25/18 08:00: Free T4 0.91, TSH 3rd Generation 0.60 01/25/18 07:20: Sodium 140, Potassium 3.8, Chloride 105, Carbon Dioxide 23, Anion Gap 16, BUN 11, Creatinine 0.6 L, Est GFR ( Amer) > 60, Est GFR ( Non-Af Amer) > 60, Random Glucose 133 H, Calcium 9.6, Total Bilirubin 0.6, AST 36, ALT 64 H, Alkaline Phosphatase 112, Total Protein 7.8, Albumin 4.3, Globulin 3.5, Albumin/Globulin Ratio 1.2 01/25/18 07:20: WBC 8.8, RBC 4.65, Hgb 14.0, Hct 42.3, MCV 91.0, MCH 30.1, MCHC 33.1, RDW 14.0, Plt Count 291, MPV 10.3, Gran % 54.9, Lymph % (Auto) 34.2, [place] % (Auto) 8.1 H, Eos % (Auto) 2.5, Baso % (Auto) 0.3, Gran # 4.83, Lymph # (Auto ) 3.0, [place] # (Auto) 0.7 H, Eos # (Auto) 0.2, Baso # (Auto) 0.03 01/24/18 07:00: RPR Nonreactive 01/24/18 07:00: TSH 3rd Generation 0.41 L 01/24/18 07:00: Fasting Glucose 127 H, Triglycerides 112, Cholesterol 168, LDL Cholesterol Direct 101, HDL Cholesterol 43 Vital Signs Temp Pulse Resp BP Pulse Ox 01/25/18 08:44 74 124/78 01/25/18 06:54 97.6 F 74 18 127/78 01/24/18 16:00 80 129/84 01/24/18 14:25 90 174/115 H 01/24/18 07:37 98.4 F 73 20 106/65 01/24/18 02:42 97.6 F 73 20 140/69 01/24/18 01:30 75 18 135/68 97 01/23/18 23:57 98.2 F 73 18 144/65 95 DSM 5 Symptoms Update: shortly patient is 42-year old Female, with reported history of depression and anxiety, denied previous psychiatric admissions, self reported suicidal attempt at age of 11, was transferred from the [facility] where pt was brought by her sister for evaluation of intentional overdose on Seroquel, r/o suicidal attempt, pt lives with her mother, pt has multiple medical problems, pt is in the process of obtaining for disability, pt currently under care of psychiatrist who prescribed zyprexa and Lexapro as well as Ambien. Pt needs further evaluation and stabilization, medication adjustment. pt was seen and examined, discussed with staff, patient was seen at the dining area today, patient presented anxious, pt said that she is concern about her anxiety, was advised that meds were adjusted and probably that is why pt feels anxious. depressed, but with some affect activity. affect was tearful again as per staff, patient started to attend groups, visible in the unit, no agitation, no aggression. Impression: DSM 5 Diagnosis: r/o MDD r/o adjustment disorder r/o bipolar spectrum r/o panic disorder with agoraphobia r/o LUISANA cannabis abuse Medication Change: No (yesterday) Medical Record Reviewed: Yes Mental Status Examination - Cognitive Function Orientation: Person, Place, Situation, Time Memory: Intact Attention: Poor Concentration: Poor Association: WNL Fund of Knowledge: WNL - Mood Mood: Depressed, Anxious - Affect Affect: Other (labile) - Speech Speech: Appropriate - Formal Thought Process Formal Thought Process: No Impairment - Suicidal Ideation Suicidal Ideation: No - Homicidal Ideation Homicidal Ideation: No Goal/Treatment Plan - Goal/Treatment Plan Need for Continued Stay: Remain at risks for inpatient hospitalization, Severe depression anxiety, Discharge may exacerbated symptoms, Severe functional impairment Progress Toward Problem(s) and Goals/Treatment Plan: Milieu/structure/supportive therapy Medical consult was called for diarrhea, no nausea, no vomiting medications confirmed by pharmacy see HPI prozac 20mg po daily for depression and anxiety abilify 5mg po bid for mood stabilization ambien will be continued ativan 0.5mg po tid for anxiety will call orthopedic doctor pt is on injectable form of meds in her knee weekly SW consultation for discharge plan and social issues Family involvement Follow up on labs Will monitor closely Pt was educated about risk/benefits and alternatives of medications, coping strategies (safety plan, suicide prevention), relapse prevention, importance of follow up with psychiatrist and therapist, stay away from drugs/alcohol/smoking Estimated Date of D/C: 01/31/18
[2018-01-27] MEDS: Naproxen 550 mg Tab PO SCH ×2 (08:15→16:33)
[2018-01-27] MEDS: Lidocaine 5% Patch TD SCH (09:16)
--- NOTE | 2018-01-27 14:49 | PCM.PYCHPN ---
Psychiatric Progress Note - Psychiatric Progress Note Patient seen today, length of contact: 30min Patient Chief Complaint: "I am feeling blue" Problems Identified/Issues Discussed: Suicide/ homicide prevention, past psychiatric h/o, current psychiatric symptoms , medical problems, risk/benefits and alternatives of medications, medications compliance, coping strategies, substance abuse h/o, relapse prevention, importance of follow up with psychiatrist and therapist, discharge plan. Medical Problems: HTN, obesity, OA, pt is on injectable form of medication, pt had a right knee operation a week ago, L-spine disks herniations, chronic back pain. pt c/o diarrhea, pt was seen by medical team, consult appreciated Diagnostic Results: 01/25/18 07:20 01/25/18 07:20 Lab Results 01/25/18 08:00: Free T4 0.91, TSH 3rd Generation 0.60 01/25/18 07:20: Sodium 140, Potassium 3.8, Chloride 105, Carbon Dioxide 23, Anion Gap 16, BUN 11, Creatinine 0.6 L, Est GFR ( Amer) > 60, Est GFR ( Non-Af Amer) > 60, Random Glucose 133 H, Calcium 9.6, Total Bilirubin 0.6, AST 36, ALT 64 H, Alkaline Phosphatase 112, Total Protein 7.8, Albumin 4.3, Globulin 3.5, Albumin/Globulin Ratio 1.2 01/25/18 07:20: WBC 8.8, RBC 4.65, Hgb 14.0, Hct 42.3, MCV 91.0, MCH 30.1, MCHC 33.1, RDW 14.0, Plt Count 291, MPV 10.3, Gran % 54.9, Lymph % (Auto) 34.2, [place] % (Auto) 8.1 H, Eos % (Auto) 2.5, Baso % (Auto) 0.3, Gran # 4.83, Lymph # (Auto ) 3.0, [place] # (Auto) 0.7 H, Eos # (Auto) 0.2, Baso # (Auto) 0.03 01/24/18 07:00: RPR Nonreactive 01/24/18 07:00: TSH 3rd Generation 0.41 L 01/24/18 07:00: Fasting Glucose 127 H, Triglycerides 112, Cholesterol 168, LDL Cholesterol Direct 101, HDL Cholesterol 43 Vital Signs Temp Pulse Resp BP Pulse Ox 01/25/18 08:44 74 124/78 01/25/18 06:54 97.6 F 74 18 127/78 01/24/18 16:00 80 129/84 01/24/18 14:25 90 174/115 H 01/24/18 07:37 98.4 F 73 20 106/65 01/24/18 02:42 97.6 F 73 20 140/69 01/24/18 01:30 75 18 135/68 97 01/23/18 23:57 98.2 F 73 18 144/65 95 DSM 5 Symptoms Update: shortly patient is 42-year old Female, with reported history of depression and anxiety, denied previous psychiatric admissions, self reported suicidal attempt at age of 11, was transferred from the [facility] where pt was brought by her sister for evaluation of intentional overdose on Seroquel, r/o suicidal attempt, pt lives with her mother, pt has multiple medical problems, pt is in the process of obtaining for disability, pt currently under care of psychiatrist who prescribed zyprexa and Lexapro as well as Ambien. Pt needs further evaluation and stabilization, medication adjustment. pt was seen and examined, discussed with staff, patient was seen at the dining area today, patient presented anxious, patient reported feeling "blue"today patient reported to feel hopeless, helpless, but contracted for safety, patient reported to have good night sleep. Patient was willing to have family meeting which will be scheduled on Wednesday, next week. depressed, but with some affect activity. affect was tearful again as per staff, patient started to attend groups, visible in the unit, no agitation, no aggression. Impression: DSM 5 Diagnosis: r/o MDD r/o adjustment disorder r/o bipolar spectrum r/o panic disorder with agoraphobia r/o LUISANA cannabis abuse Medication Change: No (yesterday) Medical Record Reviewed: Yes Mental Status Examination - Cognitive Function Orientation: Person, Place, Situation, Time Memory: Intact Attention: Poor Concentration: Poor Association: WNL Fund of Knowledge: WNL - Mood Mood: Depressed, Anxious - Affect Affect: Other (labile) - Speech Speech: Appropriate - Formal Thought Process Formal Thought Process: No Impairment - Suicidal Ideation Suicidal Ideation: No - Homicidal Ideation Homicidal Ideation: No Goal/Treatment Plan - Goal/Treatment Plan Need for Continued Stay: Remain at risks for inpatient hospitalization, Severe depression anxiety, Discharge may exacerbated symptoms, Severe functional impairment Progress Toward Problem(s) and Goals/Treatment Plan: Milieu/structure/supportive therapy Medical consult was called for diarrhea, no nausea, no vomiting medications confirmed by pharmacy see HPI prozac 30mg po daily for depression and anxiety abilify 5mg po bid for mood stabilization ambien will be continued ativan 0.5mg po tid for anxiety will call orthopedic doctor pt is on injectable form of meds in her knee weekly SW consultation for discharge plan and social issues Family involvement Follow up on labs Will monitor closely Pt was educated about risk/benefits and alternatives of medications, coping strategies (safety plan, suicide prevention), relapse prevention, importance of follow up with psychiatrist and therapist, stay away from drugs/alcohol/smoking Estimated Date of D/C: 01/31/18
--- NOTE | 2018-01-27 16:47 | CP.PCM.PN ---
Subjective - Date & Time of Evaluation Date of Evaluation: 01/27/18 Time of Evaluation: 16:43 - Subjective Subjective: Medicine Progress Note: Patient seen and assessed at bedside in BHU. No acute events overnight. Patient reports that her diarrhea has improved since admission and that she is having less episodes of diarrhea. She denies any fevers, chills, headache, chest pain, SOB, N/V/C, urinary changes or any numbness/tingling/weakness of any extremity. Objective - Vital Signs/Intake and Output Vital Signs (last 24 hours): Temp Pulse Resp BP Pulse Ox 97.5 F L 84 20 122/77 97 01/27/18 07:27 01/27/18 09:16 01/27/18 07:27 01/27/18 09:16 01/24/18 01:30 - Medications Medications: Current Medications Acetaminophen (Tylenol 325mg Tab) 650 mg PO Q4H PRN PRN Reason: Pain, Mild (1-3) Last Admin: 01/27/18 12:50 Dose: 650 mg Al Hydrox/Mg Hydrox/Simethicone (Maalox Plus 30 Ml) 30 ml PO DAILY PRN PRN Reason: Upset Stomach Aripiprazole (Abilify) 5 mg PO [facility]HS [facility] Last Admin: 01/27/18 09:14 Dose: 5 mg Fluoxetine HCl (Prozac) 30 mg PO DAILY DWAYNE Gabapentin (Neurontin) 600 mg PO TID DWAYNE PRN Reason: Protocol Last Admin: 01/27/18 12:45 Dose: 600 mg Hydrochlorothiazide (Hydrodiuril) 25 mg PO DAILY [facility] Last Admin: 01/27/18 09:15 Dose: 25 mg Lidocaine (Lidoderm) 1 ea TD DAILY [facility] Last Admin: 01/27/18 09:16 Dose: 1 ea Lisinopril (Zestril) 20 mg PO DAILY [facility] Last Admin: 01/27/18 09:16 Dose: 20 mg Lorazepam (Ativan) 0.5 mg PO TID DWAYNE PRN Reason: Protocol Last Admin: 01/27/18 12:44 Dose: 0.5 mg Magnesium Hydroxide (Milk Of Magnesia) 30 ml PO DAILY PRN PRN Reason: Constipation Naproxen (Anaprox Ds) 550 mg PO BID [facility] Last Admin: 01/27/18 08:15 Dose: 550 mg Nicotine (Nicoderm Cq) 1 patch TD DAILY [facility] Last Admin: 01/27/18 09:16 Dose: 1 patch Tizanidine HCl (Zanaflex) 4 mg PO TID [facility] Last Admin: 01/27/18 12:47 Dose: 4 mg Tramadol HCl (Ultram) 50 mg PO TID PRN PRN Reason: severe pain >=7/10 Last Admin: 01/27/18 09:26 Dose: 50 mg Zolpidem Tartrate (Ambien) 10 mg PO HS PRN; Protocol PRN Reason: Insomnia Last Admin: 01/26/18 21:11 Dose: 10 mg - Labs Labs: 01/25/18 07:20 01/25/18 07:20 - Constitutional Appears: Non-toxic, No Acute Distress - Head Exam Head Exam: ATRAUMATIC, NORMOCEPHALIC - Eye Exam Eye Exam: EOMI, Normal appearance Pupil Exam: NORMAL ACCOMODATION, PERRL - ENT Exam ENT Exam: Mucous Membranes Moist, Normal Exam - Neck Exam Neck Exam: Full ROM, Normal Inspection. absent: Lymphadenopathy, Tenderness - Respiratory Exam Respiratory Exam: Clear to Ausculation Bilateral, NORMAL BREATHING PATTERN. absent: Accessory Muscle Use, Rales, Rhonchi, Wheezes - Cardiovascular Exam Cardiovascular Exam: REGULAR RHYTHM, RRR, +S1, +S2. absent: Bradycardia, Tachycardia, Clicks, Diastolic murmur, Gallop, Irregular Rhythm, JVD, Rubs, +S4 , Murmur - GI/Abdominal Exam GI & Abdominal Exam: Soft, Normal Bowel Sounds. absent: Distended, Firm, Guarding, Rigid, Tenderness, Rebound - Extremities Exam Extremities Exam: Full ROM, Normal Capillary Refill, Normal Inspection. absent : Calf Tenderness, Joint Swelling, Pedal Edema, Tenderness - Back Exam Back Exam: NORMAL INSPECTION - Neurological Exam Neurological Exam: Alert, Awake, CN II-XII Intact, Normal Gait, Oriented x3 - Psychiatric Exam Psychiatric exam: Normal Affect, Normal Mood - Skin Skin Exam: Dry, Intact, Normal Color, Warm Assessment and Plan - Assessment and Plan (Free Text) Assessment: 42 year old female with a past medical history significant for RA and HTN who presented to the [facility] at [facility] with depression and questionable suicide attempt. Patient was transferred from [facility]. Internal Medicine was consulted after patient complained of several episodes of non-bloody diarrhea. Plan: 1. Diarrhea -Vital Signs, CBC and CMP reviewed -C. Diff T/A negative and repeat thyroid studies WNL -Encouraged oral hydration -Patient reports improvement 2. RA -Knee X-Ray reviewed -Continue pain control as per Pscyh -Further management as per Ortho 3. HTN -Continue HCTZ and Lisinopril Patient seen and case discussed with attending, Dr. Rodney Narvaez. We will be signing off of this patient at this time. Please re-consult as needed. Thank you for allowing us to participate in the care of this patient.
[2018-01-28] MEDS: Naproxen 550 mg Tab PO SCH ×2 (08:49→17:51)
[2018-01-28] MEDS: Lidocaine 5% Patch TD SCH (08:49)
--- NOTE | 2018-01-28 17:02 | PCM.PYCHPN ---
Psychiatric Progress Note - Psychiatric Progress Note Patient seen today, length of contact: 30min Patient Chief Complaint: "I am having difficulty to fall asleep and stay asleep, very worried about my health" Problems Identified/Issues Discussed: Suicide/ homicide prevention, past psychiatric h/o, current psychiatric symptoms , medical problems, risk/benefits and alternatives of medications, medications compliance, coping strategies, substance abuse h/o, relapse prevention, importance of follow up with psychiatrist and therapist, discharge plan. Medical Problems: HTN, obesity, OA, pt is on injectable form of medication, pt had a right knee operation a week ago, L-spine disks herniations, chronic back pain. pt c/o diarrhea, pt was seen by medical team, consult appreciated Diagnostic Results: 01/25/18 07:20 01/25/18 07:20 Lab Results 01/25/18 08:00: Free T4 0.91, TSH 3rd Generation 0.60 01/25/18 07:20: Sodium 140, Potassium 3.8, Chloride 105, Carbon Dioxide 23, Anion Gap 16, BUN 11, Creatinine 0.6 L, Est GFR ( Amer) > 60, Est GFR ( Non-Af Amer) > 60, Random Glucose 133 H, Calcium 9.6, Total Bilirubin 0.6, AST 36, ALT 64 H, Alkaline Phosphatase 112, Total Protein 7.8, Albumin 4.3, Globulin 3.5, Albumin/Globulin Ratio 1.2 01/25/18 07:20: WBC 8.8, RBC 4.65, Hgb 14.0, Hct 42.3, MCV 91.0, MCH 30.1, MCHC 33.1, RDW 14.0, Plt Count 291, MPV 10.3, Gran % 54.9, Lymph % (Auto) 34.2, [place] % (Auto) 8.1 H, Eos % (Auto) 2.5, Baso % (Auto) 0.3, Gran # 4.83, Lymph # (Auto ) 3.0, [place] # (Auto) 0.7 H, Eos # (Auto) 0.2, Baso # (Auto) 0.03 01/24/18 07:00: RPR Nonreactive 01/24/18 07:00: TSH 3rd Generation 0.41 L 01/24/18 07:00: Fasting Glucose 127 H, Triglycerides 112, Cholesterol 168, LDL Cholesterol Direct 101, HDL Cholesterol 43 Vital Signs Temp Pulse Resp BP Pulse Ox 01/25/18 08:44 74 124/78 01/25/18 06:54 97.6 F 74 18 127/78 01/24/18 16:00 80 129/84 01/24/18 14:25 90 174/115 H 01/24/18 07:37 98.4 F 73 20 106/65 01/24/18 02:42 97.6 F 73 20 140/69 01/24/18 01:30 75 18 135/68 97 01/23/18 23:57 98.2 F 73 18 144/65 95 Laboratory Results - last 24 hr 01/28/18 09:00 Stool Occult Blood Positive H DSM 5 Symptoms Update: shortly patient is 42-year old Female, with reported history of depression and anxiety, denied previous psychiatric admissions, self reported suicidal attempt at age of 11/12, was transferred from the [facility] where pt was brought by her sister for evaluation of intentional overdose on Seroquel, r/o suicidal attempt, pt lives with her mother, pt has multiple medical problems, pt is in the process of obtaining for disability, pt currently under care of psychiatrist who prescribed zyprexa and Lexapro as well as Ambien. Pt needs further evaluation and stabilization, medication adjustment. pt was seen and examined, discussed with staff, patient was seen at the TV area today, patient was observed crying while talking to the nurse, patient reported that she still has difficulty to fall asleep and stay asleep, this senior technical writer implemented trazodone at the nighttime for insomnia, risk, benefits, alternatives discussed with the patient. patient presented anxious, patient reported feeling feel hopeless, helpless, but contracted for safety, depressed, but with some affect activity. FOBT was positive, discussed with medical team. as per staff, patient started to attend groups, visible in the unit, no agitation, no aggression. Impression: DSM 5 Diagnosis: r/o MDD r/o adjustment disorder r/o bipolar spectrum r/o panic disorder with agoraphobia r/o LUISANA cannabis abuse Medication Change: Yes (trazodone) Medical Record Reviewed: Yes Consults ordered or reviewed: medical consult appreciated, discussed with medical claims assistant today orthopedic consult appreciated, discussed with FOBT positive, medical team is aware Mental Status Examination - Cognitive Function Orientation: Person, Place, Situation, Time Memory: Intact Attention: Poor Concentration: Poor Association: WNL Fund of Knowledge: WNL - Mood Mood: Depressed, Anxious - Affect Affect: Other (labile) - Speech Speech: Appropriate - Formal Thought Process Formal Thought Process: No Impairment - Suicidal Ideation Suicidal Ideation: No - Homicidal Ideation Homicidal Ideation: No Goal/Treatment Plan - Goal/Treatment Plan Need for Continued Stay: Remain at risks for inpatient hospitalization, Severe depression anxiety, Discharge may exacerbated symptoms, Severe functional impairment Progress Toward Problem(s) and Goals/Treatment Plan: Milieu/structure/supportive therapy Medical consult was called for diarrhea, no nausea, no vomiting medications confirmed by pharmacy see HPI prozac 30mg po daily for depression and anxiety abilify 5mg po bid for mood stabilization ambien will be continued trazodone 50 mg at the nighttime for insomnia as well as depression ativan 0.5mg po tid for anxiety will call orthopedic doctor pt is on injectable form of meds in her knee weekly SW consultation for discharge plan and social issues Family involvement Follow up on labs Will monitor closely Pt was educated about risk/benefits and alternatives of medications, coping strategies (safety plan, suicide prevention), relapse prevention, importance of follow up with psychiatrist and therapist, stay away from drugs/alcohol/smoking Estimated Date of D/C: 01/31/18
[2018-01-29 07:09] VITALS: RESP 20
[2018-01-29] MEDS: Naproxen 550 mg Tab PO SCH ×2 (08:38→17:23)
[2018-01-29] MEDS: Lidocaine 5% Patch TD SCH (08:39)
[2018-01-29 12:42] LABS: BASO # 0.03 K/mm3 (0.0-2.0); BASO % 0.3 % (0.0-3.0); EOS # 0.1 (0.0-0.7); EOS % 0.9 % (1.5-5.0); GRAN # 5.63 (1.4-6.5); GRAN % 55.7 % (50.0-68.0); HEMOGLOBIN 14.4 g/dL (12.0-16.0); LYMPH # 3.8 (1.2-3.4); LYMPH % 37.9 % (22.0-35.0); MEAN CELL VOLUME 90.5 fl (80.0-105.0); MEAN CORPUSCULAR HEMOGLOBIN 30.4 pg (25.0-35.0); MEAN CORPUSCULAR HGB CONC 33.6 g/dl (31.0-37.0); MEAN PLATELET VOLUME 10.7 fl (7.0-11.0); MONO # 0.5 (0.1-0.6); MONO % 5.2 % (1.0-6.0); RBC 4.73 10^6/uL (3.5-6.1); WHITE BLOOD COUNT 10.1 10^3/ul (4.5-11.0)
[2018-01-29 12:44] LABS: ALB/GLOB RATIO 1.3 (1.1-1.8); ALBUMIN 4.9 g/dL (3.0-4.8); ALT/SGPT 74 U/L (7-56); AST/SGOT 41 U/L (14-36); BLOOD UREA NITROGEN 15 mg/dL (7-21); CALCIUM 10.7 mg/dL (8.4-10.5); GFR AFRICAN-AMERICAN > 60; GFR NON-AFRICAN AMERICAN > 60
--- NOTE | 2018-01-29 13:00 | PCM.PYCHPN ---
Psychiatric Progress Note - Psychiatric Progress Note Patient seen today, length of contact: 30min Patient Chief Complaint: "I slept little better" Problems Identified/Issues Discussed: Suicide/ homicide prevention, past psychiatric h/o, current psychiatric symptoms , medical problems, risk/benefits and alternatives of medications, medications compliance, coping strategies, substance abuse h/o, relapse prevention, importance of follow up with psychiatrist and therapist, discharge plan. Medical Problems: HTN, obesity, OA, pt is on injectable form of medication, pt had a right knee operation a week ago, L-spine disks herniations, chronic back pain. pt c/o diarrhea, pt was seen by medical team, consult appreciated medical team is f/u on patient on regular basis GI will be involved as well, for FOBT + Diagnostic Results: 01/25/18 07:20 01/25/18 07:20 Lab Results 01/25/18 08:00: Free T4 0.91, TSH 3rd Generation 0.60 01/25/18 07:20: Sodium 140, Potassium 3.8, Chloride 105, Carbon Dioxide 23, Anion Gap 16, BUN 11, Creatinine 0.6 L, Est GFR ( Amer) > 60, Est GFR ( Non-Af Amer) > 60, Random Glucose 133 H, Calcium 9.6, Total Bilirubin 0.6, AST 36, ALT 64 H, Alkaline Phosphatase 112, Total Protein 7.8, Albumin 4.3, Globulin 3.5, Albumin/Globulin Ratio 1.2 01/25/18 07:20: WBC 8.8, RBC 4.65, Hgb 14.0, Hct 42.3, MCV 91.0, MCH 30.1, MCHC 33.1, RDW 14.0, Plt Count 291, MPV 10.3, Gran % 54.9, Lymph % (Auto) 34.2, [place] % (Auto) 8.1 H, Eos % (Auto) 2.5, Baso % (Auto) 0.3, Gran # 4.83, Lymph # (Auto ) 3.0, [place] # (Auto) 0.7 H, Eos # (Auto) 0.2, Baso # (Auto) 0.03 01/24/18 07:00: RPR Nonreactive 01/24/18 07:00: TSH 3rd Generation 0.41 L 01/24/18 07:00: Fasting Glucose 127 H, Triglycerides 112, Cholesterol 168, LDL Cholesterol Direct 101, HDL Cholesterol 43 Vital Signs Temp Pulse Resp BP Pulse Ox 01/25/18 08:44 74 124/78 01/25/18 06:54 97.6 F 74 18 127/78 01/24/18 16:00 80 129/84 01/24/18 14:25 90 174/115 H 01/24/18 07:37 98.4 F 73 20 106/65 01/24/18 02:42 97.6 F 73 20 140/69 01/24/18 01:30 75 18 135/68 97 01/23/18 23:57 98.2 F 73 18 144/65 95 Laboratory Results - last 24 hr 01/28/18 09:00 Stool Occult Blood Positive H Laboratory Results - last 24 hr 01/29/18 01/29/18 12:20 12:20 WBC 10.1 RBC 4.73 Hgb 14.4 Hct 42.8 MCV 90.5 MCH 30.4 MCHC 33.6 RDW 13.0 Plt Count 291 MPV 10.7 Gran % 55.7 Lymph % (Auto) 37.9 H Bru[place] % (Auto) 5.2 Eos % (Auto) 0.9 L Baso % (Auto) 0.3 Gran # 5.63 Lymph # (Auto) 3.8 H Bru[place] # (Auto) 0.5 Eos # (Auto) 0.1 Baso # (Auto) 0.03 Sodium 137 Potassium 4.5 Chloride 94 L Carbon Dioxide 30 Anion Gap 17 BUN 15 Creatinine 0.8 Est GFR ( Amer) > 60 Est GFR (Non-Af Amer) > 60 Random Glucose 146 H Calcium 10.7 H Total Bilirubin 0.6 AST 41 H ALT 74 H Alkaline Phosphatase 124 Total Protein 8.7 H Albumin 4.9 H Globulin 3.8 Albumin/Globulin Ratio 1.3 Temp Pulse Resp BP Pulse Ox 97.4 F L 84 20 133/74 97 01/29/18 07:08 01/29/18 08:38 01/29/18 07:08 01/29/18 08:38 01/24/18 01:30 DSM 5 Symptoms Update: shortly patient is 42-year old Female, with reported history of depression and anxiety, denied previous psychiatric admissions, self reported suicidal attempt at age of 11, was transferred from the [facility] where pt was brought by her sister for evaluation of intentional overdose on Seroquel, r/o suicidal attempt, pt lives with her mother, pt has multiple medical problems, pt is in the process of obtaining for disability, pt currently under care of psychiatrist who prescribed zyprexa and Lexapro as well as Ambien. Pt needs further evaluation and stabilization, medication adjustment. pt was seen and examined next nursing station, hygiene is better, affect is brighter, patient reported that she slept "little bit better", asked if it is possible to increase dose of trazodone, risk, benefits, alternatives discussed with the patient. As per staff patient has episodes of tearful and anxious spells but overall patient is improving slowly. depressed, but with some affect activity. FOBT was positive, discussed with medical team, GI will be involved. as per staff, patient started to attend groups, visible in the unit, no agitation, no aggression. Impression: DSM 5 Diagnosis: r/o MDD r/o adjustment disorder r/o bipolar spectrum r/o panic disorder with agoraphobia r/o LUISANA cannabis abuse Medication Change: Yes (trazodone increased) Medical Record Reviewed: Yes Consults ordered or reviewed: medical consult appreciated, discussed with medical underwriter today orthopedic consult appreciated, discussed with FOBT positive, medical team is aware GI team will be involved Mental Status Examination - Cognitive Function Orientation: Person, Place, Situation, Time Memory: Intact Attention: Poor (some improvement) Concentration: Poor (some improvement) Association: WNL Fund of Knowledge: WNL - Mood Mood: Depressed ("I'm little bit better), Anxious (ann less anxious) - Affect Affect: Other (tearful at times) - Speech Speech: Appropriate - Formal Thought Process Formal Thought Process: No Impairment - Suicidal Ideation Suicidal Ideation: No - Homicidal Ideation Homicidal Ideation: No Goal/Treatment Plan - Goal/Treatment Plan Need for Continued Stay: Remain at risks for inpatient hospitalization, Severe depression anxiety, Discharge may exacerbated symptoms, Severe functional impairment Progress Toward Problem(s) and Goals/Treatment Plan: Milieu/structure/supportive therapy Medical consult was called for diarrhea, no nausea, no vomiting medications confirmed by pharmacy see HPI prozac 40mg po daily for depression and anxiety abilify 5mg po bid for mood stabilization ambien 10will be continued trazodone 100 mg at the nighttime for insomnia as well as depression ativan 0.5mg po tid for anxiety will call orthopedic doctor pt is on injectable form of meds in her knee weekly SW consultation for discharge plan and social issues Family involvement Follow up on labs Will monitor closely Pt was educated about risk/benefits and alternatives of medications, coping strategies (safety plan, suicide prevention), relapse prevention, importance of follow up with psychiatrist and therapist, stay away from drugs/alcohol/smoking Estimated Date of D/C: 02/01/18 (potential discharge after family meeting)
--- NOTE | 2018-01-29 14:56 | CP.PCM.PN ---
<ChandlerArden - Last Filed: 01/29/18 14:51> Subjective - Date & Time of Evaluation Date of Evaluation: 01/29/18 Time of Evaluation: 14:51 - Subjective Subjective: Medicine progress note: Dr. Romulo Narvaez Patient seen and examined at bedside. We were called for worsening diarrhea with positive FOBT Patient states that she has been having the diarrhea since she got here, but that it has been getting progressively better in the sense that she has more formed stools than when she first started having the diarrhea. She states that she gets bouts of crampy abdominal pain (describes it as a "gurgly" feeling), and then has to morgan to the bathroom where all that really passes is yellow fluid with small pieces of stool. Patient denies any subjective fevers or chills. The diarrhea is now associated with 'burning and pain' in her rectum and gross red blood when she wipes (but NOT in the stool). Patient denies any other symptoms including nausea, vomiting, change in diet or appetite. Patient denies any urinary symptoms nor any sexual symptoms such as dyspareunia. Patient denies any history of STD's and is sexually active only with one partner for many years. Objective - Vital Signs/Intake and Output Vital Signs (last 24 hours): Temp Pulse Resp BP Pulse Ox 97.4 F L 84 20 133/74 97 01/29/18 07:08 01/29/18 08:38 01/29/18 07:08 01/29/18 08:38 01/24/18 01:30 - Medications Medications: Current Medications Acetaminophen (Tylenol 325mg Tab) 650 mg PO Q4H PRN PRN Reason: Pain, Mild (1-3) Last Admin: 01/29/18 03:04 Dose: 650 mg Al Hydrox/Mg Hydrox/Simethicone (Maalox Plus 30 Ml) 30 ml PO DAILY PRN PRN Reason: Upset Stomach Aripiprazole (Abilify) 5 mg PO AMHS [facility] Last Admin: 01/29/18 09:04 Dose: 5 mg Fluoxetine HCl (Prozac) 40 mg PO DAILY [facility] Last Admin: 01/29/18 08:36 Dose: 40 mg Gabapentin (Neurontin) 600 mg PO TID [facility] PRN Reason: Protocol Last Admin: 01/29/18 13:07 Dose: 600 mg Hydrochlorothiazide (Hydrodiuril) 25 mg PO DAILY [facility] Last Admin: 01/29/18 08:36 Dose: 25 mg Lidocaine (Lidoderm) 1 ea TD DAILY [facility] Last Admin: 01/29/18 08:39 Dose: 1 ea Lisinopril (Zestril) 20 mg PO DAILY [facility] Last Admin: 01/29/18 08:38 Dose: 20 mg Lorazepam (Ativan) 0.5 mg PO TID [facility] PRN Reason: Protocol Last Admin: 01/29/18 13:07 Dose: 0.5 mg Magnesium Hydroxide (Milk Of Magnesia) 30 ml PO DAILY PRN PRN Reason: Constipation Naproxen (Anaprox Ds) 550 mg PO BID [facility] Last Admin: 01/29/18 08:38 Dose: 550 mg Nicotine (Nicoderm Cq) 1 patch TD DAILY [facility] Last Admin: 01/29/18 08:39 Dose: 1 patch Tizanidine HCl (Zanaflex) 4 mg PO TID [facility] Last Admin: 01/29/18 13:07 Dose: 4 mg Tramadol HCl (Ultram) 50 mg PO TID PRN PRN Reason: severe pain >=7/10 Last Admin: 01/29/18 08:36 Dose: 50 mg Trazodone HCl (Desyrel) 100 mg PO HS [facility] Zolpidem Tartrate (Ambien) 10 mg PO HS PRN; Protocol PRN Reason: Insomnia Last Admin: 01/28/18 21:15 Dose: 10 mg - Labs Labs: 01/29/18 12:20 01/29/18 12:20 - Constitutional Appears: Well - Head Exam Head Exam: ATRAUMATIC, NORMAL INSPECTION, NORMOCEPHALIC - Eye Exam Eye Exam: EOMI, Normal appearance, PERRL Pupil Exam: NORMAL ACCOMODATION, PERRL - ENT Exam ENT Exam: Mucous Membranes Moist, Normal Exam - Neck Exam Neck Exam: Full ROM, Normal Inspection. absent: Lymphadenopathy - Respiratory Exam Respiratory Exam: Clear to Ausculation Bilateral, NORMAL BREATHING PATTERN - Cardiovascular Exam Cardiovascular Exam: REGULAR RHYTHM, +S1, +S2. absent: Murmur - GI/Abdominal Exam GI & Abdominal Exam: Soft, Normal Bowel Sounds. absent: Tenderness - Rectal Exam Rectal Exam: NORMAL INSPECTION (no gross blood on exam, but pain with insertion of lubricated finger). absent: Bloody Stool, Hemorrhoids, Fecal Impaction - Exam Speculum exam: Vaginal Discharge (When conducting rectal exam, noticed white discharge from vagina) - Extremities Exam Extremities Exam: Full ROM, Normal Capillary Refill, Normal Inspection. absent : Joint Swelling, Pedal Edema - Back Exam Back Exam: NORMAL INSPECTION - Neurological Exam Neurological Exam: Alert, Awake, CN II-XII Intact, Normal Gait, Oriented x3 - Psychiatric Exam Psychiatric exam: Normal Affect, Normal Mood - Skin Skin Exam: Dry, Intact, Normal Color, Warm Assessment and Plan - Assessment and Plan (Free Text) Assessment: Assessment and Plan: 42 year old female with a past medical history significant for RA and HTN who presented to the [facility] at [facility] [place] with depression and questionable suicide attempt. Patient was transferred from [facility]. Internal Medicine was consulted after patient complained of several episodes of non-bloody diarrhea. Diarrhea -Vital Signs Stable, CBC and CMP reviewed, no major abnormalities noted besides hypochloremia -C. Diff T/A negative initially -C. Diff sent again; fecal leukocytes; stool culture -CT Abdomen pelvis ordered -Encouraged oral hydration -FOBT was positive; rectal exam by me showed no gross blood, scant mucousy stool in rectal vault, no hemorhoids, but pain with insertion -GI consulted by Psych RA -Knee X-Ray reviewed -Continue pain control as per Pscyh -Further management as per Ortho HTN -Continue HCTZ and Lisinopril <Rodney Narvaez - Last Filed: 01/30/18 15:06> Objective - Vital Signs/Intake and Output Vital Signs (last 24 hours): Temp Pulse Resp BP Pulse Ox 98.8 F 87 20 126/86 97 01/30/18 07:46 01/30/18 08:30 01/30/18 07:46 01/30/18 08:30 01/24/18 01:30 - Medications Medications: Current Medications Acetaminophen (Tylenol 325mg Tab) 650 mg PO Q4H PRN PRN Reason: Pain, Mild (1-3) Last Admin: 01/30/18 04:40 Dose: 650 mg Aripiprazole (Abilify) 5 mg PO AMHS [facility] Last Admin: 01/30/18 11:00 Dose: 5 mg Fluoxetine HCl (Prozac) 40 mg PO DAILY [facility] Last Admin: 01/30/18 08:29 Dose: 40 mg Gabapentin (Neurontin) 600 mg PO TID [facility] PRN Reason: Protocol Last Admin: 01/30/18 12:50 Dose: 600 mg Hydrochlorothiazide (Hydrodiuril) 25 mg PO DAILY [facility] Last Admin: 01/30/18 08:31 Dose: 25 mg Lidocaine (Lidoderm) 1 ea TD DAILY [facility] Last Admin: 01/30/18 08:28 Dose: 1 ea Lisinopril (Zestril) 20 mg PO DAILY [facility] Last Admin: 01/30/18 08:30 Dose: 20 mg Lorazepam (Ativan) 0.5 mg PO TID [facility] PRN Reason: Protocol Last Admin: 01/30/18 12:50 Dose: 0.5 mg Naproxen (Anaprox Ds) 550 mg PO BID [facility] Last Admin: 01/30/18 08:27 Dose: Not Given Nicotine (Nicoderm Cq) 1 patch TD DAILY [facility] Last Admin: 01/30/18 08:27 Dose: 1 patch Tizanidine HCl (Zanaflex) 4 mg PO TID [facility] Last Admin: 01/30/18 12:50 Dose: 4 mg Tramadol HCl (Ultram) 50 mg PO TID PRN PRN Reason: severe pain >=7/10 Last Admin: 01/30/18 08:34 Dose: 50 mg Trazodone HCl (Desyrel) 100 mg PO HS [facility] Last Admin: 01/29/18 21:47 Dose: 100 mg Zolpidem Tartrate (Ambien) 10 mg PO HS PRN; Protocol PRN Reason: Insomnia Last Admin: 01/29/18 21:47 Dose: 10 mg - Labs Labs: 01/29/18 12:20 01/29/18 12:20 Attending/Attestation - Attestation I have personally seen and examined this patient.: Yes I have fully participated in the care of the patient.: Yes I have reviewed all pertinent clinical information, including history, physical exam and plan: Yes Notes (Text): I have seen and examined the patient at bedside. Agree with the above note with the following additions/ exceptions: CT reviewed. Encourage oral hydration. Manage as per GI recommendations.
[2018-01-30] MEDS: Naproxen 550 mg Tab PO SCH ×2 (08:27→16:12)
[2018-01-30] MEDS: Lidocaine 5% Patch TD SCH (08:28)
--- NOTE | 2018-01-30 10:27 | CP.PCM.CON ---
<Tucker Guerra - Last Filed: 01/30/18 10:37> History of Present Illness - History of Present Illness History of Present Illness: PGY4 Initial GI Consult Leelee Martinez is a 42F w/ hx of RA and HTN who [place] [facility] [place] [facility] [place] and questionable [place] attempt. Patient was transferred from [facility]. Internal Medicine was consulted after patient complained of several episodes of non-bloody diarrhea. Patient reports that she had four episodes of diarrhea yesterday and two so far today. She endorses associated nausea without vomiting. She was recently hospitalized for right knee arthroscopy and received x1 dose of abx. She notes that she has had intermittent diarrhea for years. She has previously undergone both colonoscopy and endoscopy (< 5years ago) which revealed a few polyps and neg EGD. She denies any fever, chills or diaphoresis. Denies any BRBPR, melena, hematachezia or coffee-ground emesis. Denies any weight loss. PMH: RA, HTN, Depression and Anxiety PSH: Tubal Ligation, Left Ankle Repair and Right Meniscal Repair (two weeks ago) Family History: Father- from coronary thrombus at age 42; Mother- Multiple CVA; Denies any history of CRC or IBD Social History: Current half PPD smoker with a 4 year pack smoking history and marijuana via pipe three to four times per week but denies any alcohol or further illicit drug abuse; Lives with her son Endo hx: see above ROS: 12 point ROS conducted, neg other than above Past Patient History - Infectious Disease Hx of Infectious Diseases: None - Past Medical History & Family History Past Medical History?: Yes - Past Social History Smoking Status: Light Smoker < 10 Cigarettes Daily - CARDIAC Hx Hypertension: Yes - MUSCULOSKELETAL/RHEUMATOLOGICAL Hx Arthritis: Yes Hx Rheumatoid Arthritis: Yes - GASTROINTESTINAL Hx Gastrointestinal Disorders: Yes Hx Gastroesophageal Reflux: Yes - PSYCHIATRIC Hx Depression: Yes Hx Substance Use: Yes - SURGICAL HISTORY Hx Orthopedic Surgery: Yes (LEFT ANKLE FRACTURE) Hx Tubal Ligation: Yes - ANESTHESIA Hx Anesthesia: Yes Meds Allergies/Adverse Reactions: Allergies Allergy/AdvReac Type Severity Reaction Status Date / Time No Known Allergies Allergy Verified 01/24/18 05:24 - Medications Medications: Current Medications Acetaminophen (Tylenol 325mg Tab) 650 mg PO Q4H PRN PRN Reason: Pain, Mild (1-3) Last Admin: 01/30/18 04:40 Dose: 650 mg Aripiprazole (Abilify) 5 mg PO AMHS [facility] Last Admin: 01/29/18 21:48 Dose: 5 mg Fluoxetine HCl (Prozac) 40 mg PO DAILY [facility] Last Admin: 01/30/18 08:29 Dose: 40 mg Gabapentin (Neurontin) 600 mg PO TID [facility] PRN Reason: Protocol Last Admin: 01/30/18 08:30 Dose: 600 mg Hydrochlorothiazide (Hydrodiuril) 25 mg PO DAILY [facility] Last Admin: 01/30/18 08:31 Dose: 25 mg Lidocaine (Lidoderm) 1 ea TD DAILY [facility] Last Admin: 01/30/18 08:28 Dose: 1 ea Lisinopril (Zestril) 20 mg PO DAILY [facility] Last Admin: 01/30/18 08:30 Dose: 20 mg Lorazepam (Ativan) 0.5 mg PO TID [facility] PRN Reason: Protocol Last Admin: 01/30/18 08:30 Dose: 0.5 mg Naproxen (Anaprox Ds) 550 mg PO BID [facility] Last Admin: 01/30/18 08:27 Dose: Not Given Nicotine (Nicoderm Cq) 1 patch TD DAILY [facility] Last Admin: 01/30/18 08:27 Dose: 1 patch Tizanidine HCl (Zanaflex) 4 mg PO TID [facility] Last Admin: 01/30/18 08:30 Dose: 4 mg Tramadol HCl (Ultram) 50 mg PO TID PRN PRN Reason: severe pain >=7/10 Last Admin: 01/30/18 08:34 Dose: 50 mg Trazodone HCl (Desyrel) 100 mg PO HS [facility] Last Admin: 01/29/18 21:47 Dose: 100 mg Zolpidem Tartrate (Ambien) 10 mg PO HS PRN; Protocol PRN Reason: Insomnia Last Admin: 01/29/18 21:47 Dose: 10 mg Physical Exam - Constitutional Appears: No Acute Distress - Head Exam Head Exam: ATRAUMATIC, NORMOCEPHALIC - Eye Exam Eye Exam: Normal appearance Pupil Exam: NORMAL ACCOMODATION - ENT Exam ENT Exam: Mucous Membranes Moist, Normal Exam - Neck Exam Neck exam: Positive for: Normal Inspection - Respiratory Exam Respiratory Exam: Clear to Auscultation Bilateral, NORMAL BREATHING PATTERN. absent: Rales, Rhonchi, Wheezes, Respiratory Distress - Cardiovascular Exam Cardiovascular Exam: REGULAR RHYTHM, +S1, +S2 - GI/Abdominal Exam GI & Abdominal Exam: Normal Bowel Sounds, Soft. absent: Firm, Guarding, Hernia , Rigid - Extremities Exam Extremities exam: Negative for: joint swelling, pedal edema - Neurological Exam Neurological exam: Alert, Oriented x3 - Psychiatric Exam Psychiatric exam: Normal Affect, Normal Mood - Skin Skin Exam: Dry, Intact, Normal Color, Warm Results - Vital Signs Recent Vital Signs: Last Vital Signs Temp 98.8 F 01/30/18 07:46 Pulse 87 01/30/18 08:30 Resp 20 01/30/18 07:46 BP 126/86 01/30/18 08:30 Pulse Ox 97 01/24/18 01:30 - Labs Result Diagrams: 01/29/18 12:20 01/29/18 12:20 Labs: Laboratory Results - last 24 hr 01/29/18 01/29/18 01/29/18 12:20 12:20 13:40 WBC 10.1 RBC 4.73 Hgb 14.4 Hct 42.8 MCV 90.5 MCH 30.4 MCHC 33.6 RDW 13.0 Plt Count 291 MPV 10.7 Gran % 55.7 Lymph % (Auto) 37.9 H [place] % (Auto) 5.2 Eos % (Auto) 0.9 L Baso % (Auto) 0.3 Gran # 5.63 Lymph # (Auto) 3.8 H [place] # (Auto) 0.5 Eos # (Auto) 0.1 Baso # (Auto) 0.03 Sodium 137 Potassium 4.5 Chloride 94 L Carbon Dioxide 30 Anion Gap 17 BUN 15 Creatinine 0.8 Est GFR ( Amer) > 60 Est GFR (Non-Af Amer) > 60 Random Glucose 146 H Calcium 10.7 H Total Bilirubin 0.6 AST 41 H ALT 74 H Alkaline Phosphatase 124 Total Protein 8.7 H Albumin 4.9 H Globulin 3.8 Albumin/Globulin Ratio 1.3 Stool Leukocytes, Qual Negative Assessment & Plan - Assessment and Plan (Free Text) Assessment: Michelle is a 42 year old female with a past medical history significant for RA and HTN who presented [facility] [place] [facility] [place] [facility] and questionable suicide attempt. Acute Chronic Diarrhea, DDx: IBS-D; r/p ova and Paracy, bacterial etiology hx of colon polyps Nausea, resolved Plan: -c.deff neg -FOBT +, no signs of GI bleed -recommend colonoscopy and EGD as oupt -stool culture pending -O&P pending -if stool cultures are neg, can consider trial of imodium -stopped MgOH, which may cause diarrhea -continue diet as tolerated -will sign off D/W Dr. Mcgill <Robert Mcgill - Last Filed: 01/30/18 16:11> Meds - Medications Medications: Current Medications Acetaminophen (Tylenol 325mg Tab) 650 mg PO Q4H PRN PRN Reason: Pain, Mild (1-3) Last Admin: 01/30/18 04:40 Dose: 650 mg Aripiprazole (Abilify) 5 mg PO AMHS [facility] Last Admin: 01/30/18 11:00 Dose: 5 mg Fluoxetine HCl (Prozac) 40 mg PO DAILY [facility] Last Admin: 01/30/18 08:29 Dose: 40 mg Gabapentin (Neurontin) 600 mg PO TID [facility] PRN Reason: Protocol Last Admin: 01/30/18 12:50 Dose: 600 mg Hydrochlorothiazide (Hydrodiuril) 25 mg PO DAILY [facility] Last Admin: 01/30/18 08:31 Dose: 25 mg Lidocaine (Lidoderm) 1 ea TD DAILY [facility] Last Admin: 01/30/18 08:28 Dose: 1 ea Lisinopril (Zestril) 20 mg PO DAILY [facility] Last Admin: 01/30/18 08:30 Dose: 20 mg Lorazepam (Ativan) 0.5 mg PO TID [facility] PRN Reason: Protocol Last Admin: 01/30/18 12:50 Dose: 0.5 mg Naproxen (Anaprox Ds) 550 mg PO BID [facility] Last Admin: 01/30/18 08:27 Dose: Not Given Nicotine (Nicoderm Cq) 1 patch TD DAILY [facility] Last Admin: 01/30/18 08:27 Dose: 1 patch Tizanidine HCl (Zanaflex) 4 mg PO TID [facility] Last Admin: 01/30/18 12:50 Dose: 4 mg Tramadol HCl (Ultram) 50 mg PO TID PRN PRN Reason: severe pain >=7/10 Last Admin: 01/30/18 08:34 Dose: 50 mg Trazodone HCl (Desyrel) 100 mg PO [facility] Last Admin: 01/29/18 21:47 Dose: 100 mg Zolpidem Tartrate (Ambien) 10 mg PO HS PRN; Protocol PRN Reason: Insomnia Last Admin: 01/29/18 21:47 Dose: 10 mg Results - Vital Signs Recent Vital Signs: Last Vital Signs Temp 98.8 F 01/30/18 07:46 Pulse 87 01/30/18 08:30 Resp 20 01/30/18 07:46 BP 126/86 01/30/18 08:30 Pulse Ox 97 01/24/18 01:30 - Labs Result Diagrams: 01/29/18 12:20 01/29/18 12:20 Labs: Laboratory Results - last 24 hr 01/29/18 13:40 Stool Leukocytes, Qual Negative Attending/Attestation - Attestation I have personally seen and examined this patient.: Yes I have fully participated in the care of the patient.: Yes I have reviewed all pertinent clinical information: Yes Notes (Text): 01/30/18 16:10 42 year old female admitted to psychiatric [facility] complaining of diarrhea. Check stool studies to r/o infectious etiologies. Recommend outpatient workup if persistent diarrhea including possible colonoscopy. Immodium as needed.
--- NOTE | 2018-01-30 10:52 | CT ---
PROCEDURE: CT Abdomen and Pelvis without intravenous contrast HISTORY: Diarrhea COMPARISON: None. TECHNIQUE: Unenhanced study. Neither oral nor intravenous contrast administered. Radiation dose: Total exam DLP = Total exam DLP = 1008.67 mGy-cm. This CT exam was performed using one or more of the following dose reduction techniques: Automated exposure control, adjustment of the mA and/or kV according to patient size, and/or use of iterative reconstruction technique. FINDINGS: LOWER THORAX: Unremarkable. LIVER: Hepatomegaly, hepatic steatosis. GALLBLADDER AND BILE DUCTS: Unremarkable. PANCREAS: Unremarkable. No gross lesion or ductal dilatation. SPLEEN: Unremarkable. ADRENALS: Unremarkable. No mass. KIDNEYS AND URETERS: Unremarkable. No hydronephrosis. No solid mass. VASCULATURE: Unremarkable. No aortic aneurysm. BOWEL: Unremarkable. No obstruction. No gross mural thickening. APPENDIX: No abnormalities to suggest acute appendicitis. No right lower quadrant inflammatory processes identified. PERITONEUM: Unremarkable. No free fluid. No free air. LYMPH NODES: Unremarkable. No enlarged lymph nodes. BLADDER: Unremarkable. REPRODUCTIVE: Unremarkable. Surgical clips the pelvis perhaps from tubal ligation. BONES: No acute fracture. OTHER FINDINGS: None. IMPRESSION: No acute findings related to/accounting for the clinical presentation. Additional benign and/or incidental findings described above.
--- NOTE | 2018-01-30 11:30 | PCM.PYCHPN ---
Psychiatric Progress Note - Psychiatric Progress Note Patient seen today, length of contact: 30min Patient Chief Complaint: "I was afraid that all medications will be discontinued and I will go [facility]..." Problems Identified/Issues Discussed: Suicide/ homicide prevention, past psychiatric h/o, current psychiatric symptoms , medical problems, risk/benefits and alternatives of medications, medications compliance, coping strategies, substance abuse h/o, relapse prevention, importance of follow up with psychiatrist and therapist, discharge plan. Medical Problems: HTN, obesity, OA, pt is on injectable form of medication, pt had a right knee operation a week ago, L-spine disks herniations, chronic back pain. pt c/o diarrhea, pt was seen by medical team, consult appreciated medical team is f/u on patient on regular basis GI will be involved as well, for FOBT + GI consult appreciated medical consult appreciated will f/u with recommendations Diagnostic Results: 01/25/18 07:20 01/25/18 07:20 Lab Results 01/25/18 08:00: Free T4 0.91, TSH 3rd Generation 0.60 01/25/18 07:20: Sodium 140, Potassium 3.8, Chloride 105, Carbon Dioxide 23, Anion Gap 16, BUN 11, Creatinine 0.6 L, Est GFR ( Amer) > 60, Est GFR ( Non-Af Amer) > 60, Random Glucose 133 H, Calcium 9.6, Total Bilirubin 0.6, AST 36, ALT 64 H, Alkaline Phosphatase 112, Total Protein 7.8, Albumin 4.3, Globulin 3.5, Albumin/Globulin Ratio 1.2 01/25/18 07:20: WBC 8.8, RBC 4.65, Hgb 14.0, Hct 42.3, MCV 91.0, MCH 30.1, MCHC 33.1, RDW 14.0, Plt Count 291, MPV 10.3, Gran % 54.9, Lymph % (Auto) 34.2, Bullitt % (Auto) 8.1 H, Eos % (Auto) 2.5, Baso % (Auto) 0.3, Gran # 4.83, Lymph # (Auto ) 3.0, Bullitt # (Auto) 0.7 H, Eos # (Auto) 0.2, Baso # (Auto) 0.03 01/24/18 07:00: RPR Nonreactive 01/24/18 07:00: TSH 3rd Generation 0.41 L 01/24/18 07:00: Fasting Glucose 127 H, Triglycerides 112, Cholesterol 168, LDL Cholesterol Direct 101, HDL Cholesterol 43 Vital Signs Temp Pulse Resp BP Pulse Ox 01/25/18 08:44 74 124/78 01/25/18 06:54 97.6 F 74 18 127/78 01/24/18 16:00 80 129/84 01/24/18 14:25 90 174/115 H 01/24/18 07:37 98.4 F 73 20 106/65 01/24/18 02:42 97.6 F 73 20 140/69 01/24/18 01:30 75 18 135/68 97 01/23/18 23:57 98.2 F 73 18 144/65 95 Laboratory Results - last 24 hr 01/28/18 09:00 Stool Occult Blood Positive H Laboratory Results - last 24 hr 01/29/18 01/29/18 12:20 12:20 WBC 10.1 RBC 4.73 Hgb 14.4 Hct 42.8 MCV 90.5 MCH 30.4 MCHC 33.6 RDW 13.0 Plt Count 291 MPV 10.7 Gran % 55.7 Lymph % (Auto) 37.9 H Bullitt % (Auto) 5.2 Eos % (Auto) 0.9 L Baso % (Auto) 0.3 Gran # 5.63 Lymph # (Auto) 3.8 H Bullitt # (Auto) 0.5 Eos # (Auto) 0.1 Baso # (Auto) 0.03 Sodium 137 Potassium 4.5 Chloride 94 L Carbon Dioxide 30 Anion Gap 17 BUN 15 Creatinine 0.8 Est GFR ( Amer) > 60 Est GFR (Non-Af Amer) > 60 Random Glucose 146 H Calcium 10.7 H Total Bilirubin 0.6 AST 41 H ALT 74 H Alkaline Phosphatase 124 Total Protein 8.7 H Albumin 4.9 H Globulin 3.8 Albumin/Globulin Ratio 1.3 Temp Pulse Resp BP Pulse Ox 97.4 F L 84 20 133/74 97 01/29/18 07:08 01/29/18 08:38 01/29/18 07:08 01/29/18 08:38 01/24/18 01:30 Laboratory Results - last 24 hr 01/29/18 01/29/18 01/29/18 12:20 12:20 13:40 WBC 10.1 RBC 4.73 Hgb 14.4 Hct 42.8 MCV 90.5 MCH 30.4 MCHC 33.6 RDW 13.0 Plt Count 291 MPV 10.7 Gran % 55.7 Lymph % (Auto) 37.9 H Bullitt % (Auto) 5.2 Eos % (Auto) 0.9 L Baso % (Auto) 0.3 Gran # 5.63 Lymph # (Auto) 3.8 H Bullitt # (Auto) 0.5 Eos # (Auto) 0.1 Baso # (Auto) 0.03 Sodium 137 Potassium 4.5 Chloride 94 L Carbon Dioxide 30 Anion Gap 17 BUN 15 Creatinine 0.8 Est GFR ( Amer) > 60 Est GFR (Non-Af Amer) > 60 Random Glucose 146 H Calcium 10.7 H Total Bilirubin 0.6 AST 41 H ALT 74 H Alkaline Phosphatase 124 Total Protein 8.7 H Albumin 4.9 H Globulin 3.8 Albumin/Globulin Ratio 1.3 Stool Leukocytes, Qual Negative Temp Pulse Resp BP Pulse Ox 98.8 F 87 20 126/86 97 01/30/18 07:46 01/30/18 08:30 01/30/18 07:46 01/30/18 08:30 01/24/18 01:30 CT of abdomen 01/29/18 WNL DSM 5 Symptoms Update: shortly patient is 42-year old Female, with reported history of depression and anxiety, denied previous psychiatric admissions, self reported suicidal attempt at age of 11/12, was transferred from the [facility] where pt was brought by her sister for evaluation of intentional overdose on Seroquel, r/o suicidal attempt, pt lives with her mother, pt has multiple medical problems, pt is in the process of obtaining for disability, pt currently under care of psychiatrist who prescribed zyprexa and Lexapro as well as Ambien. Pt needs further evaluation and stabilization, medication adjustment. pt was seen and examined at the day treatment area, hygiene is better, affect is brighter, pt said she did not sleep last night because "I thought that all medications would be discontinued after I will be discharged, I thought I will go to [facility]", pt was educated that all prescriptions will be given to her upon discharge, and pt's psychiatrist will be advised to continue all meds pt was stabilized on, pt was appreciative. pt said "I feel better, my mood is better, I feel more energetic". As per staff patient has episodes of tearful and anxious spells but overall patient is improving slowly. FOBT was positive, discussed with medical team, GI consult appreciated. as per staff, patient started to attend groups, visible in the unit, no agitation, no aggression. Impression: DSM 5 Diagnosis: r/o MDD r/o adjustment disorder r/o bipolar spectrum r/o panic disorder with agoraphobia r/o LUISANA cannabis abuse Medication Change: No (meds adjusted yesterday) Medical Record Reviewed: Yes Consults ordered or reviewed: medical consult appreciated, discussed with medical recruiter today orthopedic consult appreciated, discussed with FOBT positive, medical team is aware GI team will be involved Mental Status Examination - Cognitive Function Orientation: Person, Place, Situation, Time Memory: Intact Attention: Poor (some improvement) Concentration: Poor (some improvement) Association: WNL Fund of Knowledge: WNL - Mood Mood: Depressed ("I'm little bit better), Anxious ("I was afraid and anxious") - Affect Affect: Constricted (but more reactive, mood congruent) - Speech Speech: Appropriate - Formal Thought Process Formal Thought Process: No Impairment - Suicidal Ideation Suicidal Ideation: No - Homicidal Ideation Homicidal Ideation: No Goal/Treatment Plan - Goal/Treatment Plan Need for Continued Stay: Remain at risks for inpatient hospitalization, Severe depression anxiety, Discharge may exacerbated symptoms, Severe functional impairment Progress Toward Problem(s) and Goals/Treatment Plan: Milieu/structure/supportive therapy Medical/GI consult was called for diarrhea, which improved prozac 40mg po daily for depression and anxiety abilify 5mg po bid for mood stabilization ambien 10mg will be continued trazodone 100 mg at the nighttime for insomnia as well as depression ativan 0.5mg po tid for anxiety orthopedic consult appreciated, no need injectable form of meds in her knee while in the hospital SW consultation for discharge plan and social issues Family involvement, family meeting scheduled on Wednesday, then potential d/c Follow up on labs Will monitor closely Pt was educated about risk/benefits and alternatives of medications, coping strategies (safety plan, suicide prevention), relapse prevention, importance of follow up with psychiatrist and therapist, stay away from drugs/alcohol/smoking Estimated Date of D/C: 02/01/18 (potential discharge after family meeting)
--- NOTE | 2018-01-30 17:52 | CP.PCM.PN ---
Subjective - Date & Time of Evaluation Date of Evaluation: 01/30/18 Time of Evaluation: 17:46 - Subjective Subjective: Medicine consult note: Dr. Romulo Narvaez Patient seen and examined at bedside. Patient states she is feeling better and that she had only one bout of diarrhea this morning. Patient denies any new complaints including fatigue and dizziness, fevers or chills, and nausea vomiting. Objective - Vital Signs/Intake and Output Vital Signs (last 24 hours): Temp Pulse Resp BP Pulse Ox 98.8 F 97 H 20 125/66 97 01/30/18 07:46 01/30/18 16:00 01/30/18 07:46 01/30/18 16:00 01/24/18 01:30 - Medications Medications: Current Medications Acetaminophen (Tylenol 325mg Tab) 650 mg PO Q4H PRN PRN Reason: Pain, Mild (1-3) Last Admin: 01/30/18 04:40 Dose: 650 mg Aripiprazole (Abilify) 5 mg PO AMHS [facility] Last Admin: 01/30/18 11:00 Dose: 5 mg Fluoxetine HCl (Prozac) 40 mg PO DAILY [facility] Last Admin: 01/30/18 08:29 Dose: 40 mg Gabapentin (Neurontin) 600 mg PO TID [facility] PRN Reason: Protocol Last Admin: 01/30/18 17:22 Dose: 600 mg Hydrochlorothiazide (Hydrodiuril) 25 mg PO DAILY [facility] Last Admin: 01/30/18 08:31 Dose: 25 mg Lidocaine (Lidoderm) 1 ea TD DAILY [facility] Last Admin: 01/30/18 08:28 Dose: 1 ea Lisinopril (Zestril) 20 mg PO DAILY [facility] Last Admin: 01/30/18 08:30 Dose: 20 mg Lorazepam (Ativan) 0.5 mg PO TID [facility] PRN Reason: Protocol Last Admin: 01/30/18 17:23 Dose: 0.5 mg Naproxen (Anaprox Ds) 550 mg PO BID [facility] Last Admin: 01/30/18 16:12 Dose: Not Given Nicotine (Nicoderm Cq) 1 patch TD DAILY [facility] Last Admin: 01/30/18 08:27 Dose: 1 patch Tizanidine HCl (Zanaflex) 4 mg PO TID [facility] Last Admin: 01/30/18 17:23 Dose: 4 mg Tramadol HCl (Ultram) 50 mg PO TID PRN PRN Reason: severe pain >=7/10 Last Admin: 01/30/18 17:23 Dose: 50 mg Trazodone HCl (Desyrel) 100 mg PO HS [facility] Last Admin: 01/29/18 21:47 Dose: 100 mg Zolpidem Tartrate (Ambien) 10 mg PO HS PRN; Protocol PRN Reason: Insomnia Last Admin: 01/29/18 21:47 Dose: 10 mg - Labs Labs: 01/29/18 12:20 01/29/18 12:20 - Constitutional Appears: Well - Head Exam Head Exam: ATRAUMATIC, NORMAL INSPECTION, NORMOCEPHALIC - Eye Exam Eye Exam: EOMI, Normal appearance, PERRL Pupil Exam: NORMAL ACCOMODATION, PERRL - ENT Exam ENT Exam: Mucous Membranes Moist, Normal Exam - Neck Exam Neck Exam: Full ROM, Normal Inspection. absent: Lymphadenopathy - Respiratory Exam Respiratory Exam: Clear to Ausculation Bilateral, NORMAL BREATHING PATTERN - Cardiovascular Exam Cardiovascular Exam: REGULAR RHYTHM, +S1, +S2. absent: Murmur - GI/Abdominal Exam GI & Abdominal Exam: Soft, Normal Bowel Sounds. absent: Tenderness - Extremities Exam Extremities Exam: Full ROM, Normal Capillary Refill, Normal Inspection. absent : Joint Swelling, Pedal Edema - Back Exam Back Exam: NORMAL INSPECTION - Neurological Exam Neurological Exam: Alert, Awake, CN II-XII Intact, Normal Gait, Oriented x3 - Psychiatric Exam Psychiatric exam: Normal Affect, Normal Mood - Skin Skin Exam: Dry, Intact, Normal Color, Warm Assessment and Plan - Assessment and Plan (Free Text) Assessment: Assessment and Plan: 42 year old female with a past medical history significant for RA and HTN who presented to the [facility] at [facility] with depression and questionable suicide attempt. Patient was transferred from [facility]. Internal Medicine was consulted after patient complained of several episodes of non-bloody diarrhea. Diarrhea -Vital Signs Stable, CBC and CMP reviewed, no major abnormalities noted besides hypochloremia -C. Diff T/A negative initially -C. Diff sent again; fecal leukocytes; stool culture -CT Abdomen pelvis ordered -Encouraged oral hydration -FOBT was positive; rectal exam by me showed no gross blood, scant mucousy stool in rectal vault, no hemorhoids, but pain with insertion -CT Abdomen and Pelvis showed no acute findings related to the diarrhea -GI consulted by Psych Recommend colonoscopy and EGD as outpatient Stool culture pending, O&P pending If stool cultures negative - consider immodium Stop MgOH; continue diet as tolerated Will sign off RA -Knee X-Ray reviewed -Continue pain control as per Pscyh -Further management as per Ortho HTN -Continue HCTZ and Lisinopril Dispo: Will await final cultures
[2018-01-31] MEDS: Naproxen 550 mg Tab PO SCH (09:17)
[2018-01-31] MEDS: Lidocaine 5% Patch TD SCH (09:18)
--- NOTE | 2018-01-31 09:37 | CP.PCM.PN ---
Subjective - Date & Time of Evaluation Date of Evaluation: 01/31/18 Time of Evaluation: 09:32 - Subjective Subjective: Patient seen and examined, ambulating in hallway, appears quite comfortable. She denies abdominal pain, nausea, vomiting, fever/chills. Claims her bowel movements are becoming more solid in consistency. Tolerating PO diet without difficulty. Review of vitals from today are normal. 12 point review of systems performed, negative aside from mentioned above. Objective - Vital Signs/Intake and Output Vital Signs (last 24 hours): Temp Pulse Resp BP Pulse Ox 97.8 F 90 20 116/65 97 01/31/18 07:27 01/31/18 09:20 01/31/18 07:27 01/31/18 09:20 01/24/18 01:30 - Medications Medications: Current Medications Acetaminophen (Tylenol 325mg Tab) 650 mg PO Q4H PRN PRN Reason: Pain, Mild (1-3) Last Admin: 01/30/18 04:40 Dose: 650 mg Aripiprazole (Abilify) 5 mg PO AMHS [facility] Last Admin: 01/31/18 09:25 Dose: 5 mg Fluoxetine HCl (Prozac) 40 mg PO DAILY [facility] Last Admin: 01/31/18 09:21 Dose: 40 mg Gabapentin (Neurontin) 600 mg PO TID [facility] PRN Reason: Protocol Last Admin: 01/31/18 09:19 Dose: 600 mg Hydrochlorothiazide (Hydrodiuril) 25 mg PO DAILY [facility] Last Admin: 01/31/18 09:19 Dose: 25 mg Lidocaine (Lidoderm) 1 ea TD DAILY [facility] Last Admin: 01/31/18 09:18 Dose: 1 ea Lisinopril (Zestril) 20 mg PO DAILY [facility] Last Admin: 01/31/18 09:20 Dose: 20 mg Lorazepam (Ativan) 0.5 mg PO TID [facility] PRN Reason: Protocol Last Admin: 01/31/18 09:19 Dose: 0.5 mg Naproxen (Anaprox Ds) 550 mg PO BID [facility] Last Admin: 01/31/18 09:17 Dose: 550 mg Nicotine (Nicoderm Cq) 1 patch TD DAILY [facility] Last Admin: 01/31/18 09:18 Dose: 1 patch Tizanidine HCl (Zanaflex) 4 mg PO TID [facility] Last Admin: 01/31/18 09:21 Dose: 4 mg Tramadol HCl (Ultram) 50 mg PO TID PRN PRN Reason: severe pain >=7/10 Last Admin: 01/31/18 06:02 Dose: 50 mg Trazodone HCl (Desyrel) 100 mg PO HS [facility] Last Admin: 01/30/18 21:47 Dose: 100 mg Zolpidem Tartrate (Ambien) 10 mg PO HS PRN; Protocol PRN Reason: Insomnia Last Admin: 01/30/18 21:48 Dose: 10 mg - Labs Labs: 01/29/18 12:20 01/29/18 12:20 - Constitutional Appears: Non-toxic, No Acute Distress - Head Exam Head Exam: NORMAL INSPECTION - Eye Exam Eye Exam: EOMI, Normal appearance - ENT Exam ENT Exam: Mucous Membranes Moist - Respiratory Exam Respiratory Exam: Clear to Ausculation Bilateral - Cardiovascular Exam Cardiovascular Exam: REGULAR RHYTHM, +S1, +S2 - GI/Abdominal Exam GI & Abdominal Exam: Soft, Normal Bowel Sounds Additional comments: non tender to palpation in four quadrants - Extremities Exam Extremities Exam: Normal Inspection - Skin Skin Exam: Dry, Intact, Normal Color, Warm Assessment and Plan - Assessment and Plan (Free Text) Assessment: HTN RA Depression Diarrhea - resolving Plan: - Diet as tolerated - Diarrhea resolving since oral magnesium supplement was held - Consider holding NSAID as this may cause associated diarrhea and abdominal discomfort - CT imaging reviewed by me showing no gross pathology - No further planned GI intervention, suggest outpatient follow up after psychiatric issues have resolved. May use Immodium PRN if diarrhea persists. Will sign off case, please reconsult as necessary, thank you.
--- NOTE | 2018-01-31 15:35 | PCM.BM ---
<Mary Wills Y - Last Filed: 01/31/18 15:35> Treatment Plan Problems - Problems identified on initial assessmt depression Date Initiated: 01/24/18 Time Initiated: 01:30 Assessment reference: NA Status: Active Priority: 1 Substance abuse Date Initiated: 01/24/18 Time Initiated: 01:40 Assessment reference: NA Status: Monitor Priority: 2 Treatment assets and liabiliti Patient Assests: cooperative, ADL independent Patient Liabilities: poor support system, relationship conflicts, substance abuse - Milieu Protocol Maintain good personal hygiene: daily Encourage regular showers, daily Remind patient to perform daily oral care, daily Assist patient to perform ADL's Maintain personal safety: daily Educate patient to report safety concerns to staff, daily Monitor environment for contraband/sharps Medication safety: Monitor for expected outcome, potential side effects: daily, Assess barriers to learning: daily, Assess readiness for medication education: daily Milieu Narrative: Milieu/structure/supportive therapy Medical/GI consult was called for diarrhea, which improved prozac 40mg po daily for depression and anxiety abilify 5mg po bid for mood stabilization ambien 10mg will be continued trazodone 100 mg at the nighttime for insomnia as well as depression ativan 0.5mg po tid for anxiety orthopedic consult appreciated, no need injectable form of meds in her knee while in the hospital SW consultation for discharge plan and social issues Family involvement, family meeting scheduled on Wednesday, then potential d/c Follow up on labs Will monitor closely Pt was educated about risk/benefits and alternatives of medications, coping strategies (safety plan, suicide prevention), relapse prevention, importance of follow up with psychiatrist and therapist, stay away from drugs/alcohol/smoking Family Contact Family involvement: Family/SO is involved Family contact: Patient agrees to contact Family contact name: Arianne Gasca(mother) Neil Lopez(daughter) Family contacted how many times per week?: 2 - Outside Agency [facility] [employer] Care involvment: Information-sharing Agency contact name: [employer] [facility] [employer] - Goals for Treatment Patient goals for treatment: To get my life back Discharge/Continuing Care - Education Needs Education Needs: Patient Medication, Patient Diagnosis/Disease Process, Patient Coping Skills - Discharge Discharge Criteria: Free of Suicidal thoughts - Treatment Team Participation Patient/Family/SO Statement: Milieu/structure/supportive therapy Medical/GI consult was called for diarrhea, which improved prozac 40mg po daily for depression and anxiety abilify 5mg po bid for mood stabilization ambien 10mg will be continued trazodone 100 mg at the nighttime for insomnia as well as depression ativan 0.5mg po tid for anxiety orthopedic consult appreciated, no need injectable form of meds in her knee while in the hospital SW consultation for discharge plan and social issues Family involvement, family meeting scheduled on Wednesday, then potential d/c Follow up on labs Will monitor closely Pt was educated about risk/benefits and alternatives of medications, coping strategies (safety plan, suicide prevention), relapse prevention, importance of follow up with psychiatrist and therapist, stay away from drugs/alcohol/smoking Treatment Plan Review - Problem depression Time Initiated: 01:30 Substance abuse Time Initiated: :40 <Subha Regan - Last Filed: 02/02/18 08:21> - Diagnosis (1) MDD (major depressive disorder) Status: Acute Interventions: 02/02/18 08:19 much better tolerates meds well denied SI/HI coping better with stress (2) LUISANA (generalized anxiety disorder) Status: Acute Interventions: 02/02/18 08:20 much better (3) Panic disorder Status: Acute Interventions: 02/02/18 08:20 much better pt does not have panic attacks tolerates meds well, no side effects (4) Marijuana abuse Status: Acute Interventions: 02/02/18 08:21 insight is better pt wants to quit smoking marijuana
[2018-02-01 07:15] VITALS: TEMP 98.3
[2018-02-01] MEDS: Lidocaine 5% Patch TD SCH (08:33)
[2018-02-01 08:43] VITALS: BP 128/78; PULSE 95
--- NOTE | 2018-02-02 08:35 | PCM.PYCHDC ---
Mental Status Examination - Mental Status Examination Orientation: Person, Place, Situation, Time Memory: Intact Mood: Neutral Affect: Broad (and mood congruent) Speech: Appropriate Attention: WNL Concentration: WNL Association: WNL Fund of Knowledge: WNL Formal Thought Process: No Impairment Description of patient's judgement and insight: Pt has improved insight into mental and medical illness, pt was compliant with medications and unit rules and regulations, pt was going to groups, was calm, cooperative, socially appropriate, no behavioral incidents, no agitation, no aggression. Psychotic Thoughts and Behaviors: Pt denied v/a/t hallucinations, denied paranoid ideations, pt does not appear to be psychotic, and thought process is goal directed. Suicidal Ideation: No Current Homicidal Ideation?: No Plan: pt adamantly denied thoughts of harming self or others denied intent or plan. Discharge Summary - Discharge Note Reason for Hospitalization: pt was transferred from [facility] for evaluation of depressive symptoms possible suicidal attempt. Psychiatric History (includes Medical, Family, Personal Hx): see HPI Laboratory Data: 01/29/18 12:20 01/29/18 12:20 Lab Results 01/29/18 13:40: Stool Leukocytes, Qual Negative 01/29/18 12:20: Sodium 137, Potassium 4.5, Chloride 94 L, Carbon Dioxide 30, Anion Gap 17, BUN 15, Creatinine 0.8, Est GFR ( Amer) > 60, Est GFR (Non- Af Amer) > 60, Random Glucose 146 H, Calcium 10.7 H, Total Bilirubin 0.6, AST 41 H, ALT 74 H, Alkaline Phosphatase 124, Total Protein 8.7 H, Albumin 4.9 H, Globulin 3.8, Albumin/Globulin Ratio 1.3 01/29/18 12:20: WBC 10.1, RBC 4.73, Hgb 14.4, Hct 42.8, MCV 90.5, MCH 30.4, MCHC 33.6, RDW 13.0, Plt Count 291, MPV 10.7, Gran % 55.7, Lymph % (Auto) 37.9 H , Imperial % (Auto) 5.2, Eos % (Auto) 0.9 L, Baso % (Auto) 0.3, Gran # 5.63, Lymph # (Auto) 3.8 H, Imperial # (Auto) 0.5, Eos # (Auto) 0.1, Baso # (Auto) 0.03 01/28/18 09:00: Stool Occult Blood Positive H 01/25/18 08:00: Free T4 0.91, TSH 3rd Generation 0.60 01/25/18 08:00: Free T3 pg/mL 3.64 01/25/18 07:20: Sodium 140, Potassium 3.8, Chloride 105, Carbon Dioxide 23, Anion Gap 16, BUN 11, Creatinine 0.6 L, Est GFR ( Amer) > 60, Est GFR ( Non-Af Amer) > 60, Random Glucose 133 H, Calcium 9.6, Total Bilirubin 0.6, AST 36, ALT 64 H, Alkaline Phosphatase 112, Total Protein 7.8, Albumin 4.3, Globulin 3.5, Albumin/Globulin Ratio 1.2 01/25/18 07:20: WBC 8.8, RBC 4.65, Hgb 14.0, Hct 42.3, MCV 91.0, MCH 30.1, MCHC 33.1, RDW 14.0, Plt Count 291, MPV 10.3, Gran % 54.9, Lymph % (Auto) 34.2, Imperial % (Auto) 8.1 H, Eos % (Auto) 2.5, Baso % (Auto) 0.3, Gran # 4.83, Lymph # (Auto ) 3.0, Imperial # (Auto) 0.7 H, Eos # (Auto) 0.2, Baso # (Auto) 0.03 01/24/18 07:00: RPR Nonreactive 01/24/18 07:00: TSH 3rd Generation 0.41 L 01/24/18 07:00: Fasting Glucose 127 H, Triglycerides 112, Cholesterol 168, LDL Cholesterol Direct 101, HDL Cholesterol 43 Vital Signs Temp Pulse Resp BP Pulse Ox 02/01/18 08:36 95 H 128/78 02/01/18 07:14 98.3 F 82 20 108/51 L 01/31/18 09:20 90 116/65 01/31/18 07:27 97.8 F 90 20 116/65 01/30/18 16:00 97 H 125/66 01/30/18 08:30 87 126/86 01/30/18 07:46 98.8 F 87 20 01/29/18 16:00 100 H 133/67 01/29/18 08:38 84 133/74 01/29/18 07:08 97.4 F L 84 20 133/74 01/28/18 09:48 97.8 F 93 H 18 109/79 01/27/18 09:16 84 122/77 01/27/18 07:27 97.5 F L 84 20 122/77 01/26/18 16:00 88 101/63 01/26/18 09:21 82 136/85 01/26/18 07:26 97.9 F 82 20 136/75 01/25/18 16:00 84 116/63 01/25/18 08:44 74 124/78 01/25/18 06:54 97.6 F 74 18 127/78 01/24/18 16:00 80 129/84 01/24/18 14:25 90 174/115 H 01/24/18 07:37 98.4 F 73 20 106/65 01/24/18 02:42 97.6 F 73 20 140/69 01/24/18 01:30 75 18 135/68 97 01/23/18 23:57 98.2 F 73 18 144/[address] scan of abdomen January 30 no acute changes, within normal limits Right knee x-ray January 25 mild posterior arthritis of the right knee Consultations:: List each consultation separately and include: 1. Reason for request. 2. Findings. 3. Follow-up Consultations: medical consult appreciated orthopedic consult appreciated, discussed with FOBT positive, medical team is aware GI team as involved Please see notes for more detailed information Summary of Hospital Course include:: 1. Description of specific treatment plan utilized for patients during their course of treatmen. 2. Summarize the time- course for resolution of acute symptoms and/or regressed behaviors. 3. Describe issues identified and worked on during hospitalization. 4. Describe medication utilized. 5. Describe medical problems identified and treated. 6. Reassessment of suicide risk Summary of Hospital Course: shortly patient is 42-year old Female, with reported history of depression and anxiety, denied previous psychiatric admissions, self reported suicidal attempt at age of 11/12, was transferred from the [facility] where pt was brought by her sister for evaluation of intentional overdose on Seroquel, r/o suicidal attempt, pt lives with her mother, pt has multiple medical problems, pt is in the process of obtaining for disability, pt currently under care of psychiatrist who prescribed zyprexa and Lexapro as well as Ambien. Pt needs further evaluation and stabilization, medication adjustment. pt was seen and examined, transfer paper from [facility] reviewed, labs reviewed (UA was positive for cannabis, pt is not , CBC and CMP wnl). initially patient was seen at the treatment team meeting, presented to have acceptable personal hygiene, obese, seems to be careless about her appearance, pt has good ADLs, was emotionally labile, pt was smiling then tearful. pt said she was compliant with zyprexa and Lexapro but "I asked my doctor to change it, but he refused", pt said that one week ago she broke up with her boyfriend of 4years, pt said she was not able to work because of her Rheumatoid arthritis and because of that she was struggling financially. pt said for the past week she was feeling more depressed, hopeless, helpless, worthless, guilty , "I was not doing well, I was not able to sleep at all", pt said her mind was racing, pt was not able to relax. pt said she was feeling more anxious than usual, "I started to have some twitching, it is due to my anxiety", pt also said her panic attacks from every other day became "daily". pt denied h/o abuse, denied experience of any trauma. pt said that she was compliant with meds, but "still I was not able to relax", pt said her mother also has h/o depression and she was prescribed Seroquel 25mg , "I started to take one tablet at the time, I wanted to relax, but not able to ", pt said she did not have intent or plan to kill self or harm self, pt said she took more than 5 pills then pt said "I was very confused, I remember my mother screamed at me, then she called my son, he came over, screamed at me too , now I am afraid he will not let my grand son to visit me" (as per [facility] pt overdosed after argument with son, but pt denied, said her son was screaming at pt after he had to know that pt overdosed on meds). pt adamantly denied that she wanted to harm/kill self. pt seems to be remorseful "I feel stupid, I should have known better". pt denied thoughts of harming self for the past 4weeks, pt reported to have one suicidal attempt at age of 11or12, "I was madly in love, my father was upset over that, I decided to overdose because my father's opinion was very important to me". pt denied psychotic symptoms, pt does not look to be responding to internal stimuli, denied hearing voices denied seeing things. no manic symptoms elicited or reported. pt reported that she smokes about one blunt of marijuana a day, pt denied any heavy drug use, denied alcohol consumption. pt smokes about 1/2 pack a day, nicotine patch offered, counseling provided. past psych h/o: PT reports her psychiatrist is Dr. Berry at [facility], one suicidal attempt see above. pt said she fills meds in [facility] [phone] meds confirmed Gabapentin 600 mg twice a daily Ambien 10 mg at the night Lexapro 20 mg daily Naproxen 550 twice a day Lisinopril and hydrochlorothiazide Lidoderm vistaril Patient was on Zyprexa 10 Lexapro 20 mg daily Zanaflex 4 mg 3 times a day pt c/o diarrhea, medical team called for consult. Past medical h/o: as per [facility] record pt had 5 suicidal attempts, but pt denied (pt seems to be a good and reliable historian). pt denied previous psychiatric admissions. Medical h/o: HTN, obesity, OA, pt is on injectable form of medication, pt had a right knee operation a week ago, L-spine disks herniations, chronic back pain. Family h/o: mother has depression. patient reports gave consent to contact her sister, Arianne Gasca and daughter , Neil Lopez([phone]). Lab Results 01/24/18 07:00: TSH 3rd Generation 0.41 L 01/24/18 07:00: Fasting Glucose 127 H, Triglycerides 112, Cholesterol 168, LDL Cholesterol Direct 101, HDL Cholesterol 43 Vital Signs Temp Pulse Resp BP Pulse Ox 01/24/18 14:25 90 174/115 H 01/24/18 07:37 98.4 F 73 20 106/65 01/24/18 02:42 97.6 F 73 20 140/69 01/24/18 01:30 75 18 135/68 97 01/23/18 23:57 98.2 F 73 18 144/65 95 during this hospitalization patient was stabilized on the following medications: Lexapro was discontinued prozac was titrated up slowly to 40mg po daily for depression and anxiety Zyprexa was discontinued abilify was slowly today treated to 5mg po bid for mood stabilization ambien 10mg was continued trazodone as initiated, but patient did not see any improvement on that medication and it was discontinued ativan 0.5mg po tid and the nighttime for anxiety patient tolerated all medications well, no side effects observed or reported, aims 0, no EPS. Patient improved significantly, deemed ready to be discharged, this underwriter solicitation director invited patient's family for family meeting which took place in January. In psychiatric inpatient unit. discharge took more than 35 minutes. Patient and pt's mother, Salma, pt's daughter, Jose R and pt's sister Marnie participated in Family Meeting. PT's family reports pt appears to have improved as she is more conversational with brighter affect, family appreciated treatment team effort to stabilize pt, was very pleased with the program, pt herself also was appreciative, and feels ready for d/c. pt wants to be f/u at [facility] partial program and alternative appointment with pt's existing psychiatrist, Dr. Berry at [facility] (please see note for more detailed info). Overall pt improved significantly, pt's affect became brighter, pt was less depressed, has realistic future oriented plans, pt also does not appear to be psychotic, or anxious, pt was socially appropriate, no behavioral issues. At the time of the discharge pt denied been depressed, denied thoughts of harming self or others, denied psychotic symptoms, and pt does not appeared to be psychotic, denied been anxious, pt is not in imminent danger to self or others, will be following up at [facility] program, information about follow up appointment, time and address provided to the pt, it is patient responsibility to follow up with outpatient clinic, PMD as well as specialists (see SW note for more detailed information). In case pt will need to obtain results of studies pending at discharge pt was provided with contact information of Psychiatric Inpatient unit [phone] as well as Medical Record Department [phone]. Nicotine patch was offered Counseling about smoking and marijuana cessation provided Smoking cessation treatment program information was provided by the pt was provided with prescriptions for all of medications (please see medication reconciliation form) Pt was educated about safety plan in case of worsening of symptoms or in case of suicidal or homicidal ideation call 911 or go to the nearest ER, also was educated to take meds as prescribed and stay away from drugs, pt verbalized understanding. - Diagnosis (1) MDD (major depressive disorder) Status: Chronic Priority: High (2) LUISANA (generalized anxiety disorder) Status: Chronic Priority: High (3) Panic disorder Status: Acute (4) Marijuana abuse Status: Chronic Priority: High - Final Diagnosis (DSM 5) Condition upon Discharge: IMPROVED Disposition: HOME/ ROUTINE Follow-up Treatment Plan: At the time of the discharge pt denied been depressed, denied thoughts of harming self or others, denied psychotic symptoms, and pt does not appeared to be psychotic, denied been anxious, pt is not in imminent danger to self or others, will be following up at IOP program, information about follow up appointment, time and address provided to the pt, it is patient responsibility to follow up with outpatient clinic, PMD as well as specialists (see note for more detailed information). In case pt will need to obtain results of studies pending at discharge pt was provided with contact information of Psychiatric Inpatient unit [phone] as well as Medical Record Department [phone]. Nicotine patch was offered Counseling about smoking and marijuana cessation provided Smoking cessation treatment program information was provided by the pt was provided with prescriptions for all of medications (please see medication reconciliation form) Pt was educated about safety plan in case of worsening of symptoms or in case of suicidal or homicidal ideation call 911 or go to the nearest ER, also was educated to take meds as prescribed and stay away from drugs, pt verbalized understanding. Prescriptions/Medication Reconciliation: ARIPiprazole [Abilify] 5 mg PO BID #7 tab ARIPiprazole [Abilify] 5 mg PO AMHS #7 tab Fluoxetine HCl [Prozac] 40 mg PO DAILY #14 cap Gabapentin [Neurontin] 600 mg PO TID #45 tab hydroCHLOROthiazide [Hydrodiuril] 25 mg PO DAILY #7 tab Lisinopril [Zestril] 20 mg PO DAILY #7 tab LORazepam [Ativan] 0.5 mg PO HS PRN #14 tab PRN Reason: anxiety/insomnia LORazepam [Ativan] 0.5 mg PO TID #45 tab Nicotine 14 mg/24 hr [Nicoderm CQ] 1 patch TD DAILY #14 patch tiZANidine [Zanaflex] 4 mg PO TID #21 tab Zolpidem [Ambien] 10 mg PO HS PRN #14 tab PRN Reason: Insomnia - Smoking Cessation Smoking Cessation Medication prescribed: Yes - Antipsychotic Medications Pt discharged on 2 or more routine antipsychotic medications: No
== END 2018-02-01 14:08 | disposition home or self-care (01) | DRG 426 ==
LOC: ED 23:51 → ERH 01-24 00:03 → PSYC 01-24 01:24
PROVIDERS: ADMIT Psychiatry & Neurology Psychiatry; ATTEND Psychiatry & Neurology Psychiatry
DX: F32.9 Major depressive disorder, single episode, unspecified (principal); L40.50 Arthropathic psoriasis, unspecified; F41.1 Generalized anxiety disorder; F41.0 Panic disorder [episodic paroxysmal anxiety]; F12.10 Cannabis abuse, uncomplicated; E66.9 Obesity, unspecified; F17.210 Nicotine dependence, cigarettes, uncomplicated; G47.00 Insomnia, unspecified; G89.29 Other chronic pain; I10 Essential (primary) hypertension; K21.9 Gastro-esophageal reflux disease without esophagitis; K52.9 Noninfective gastroenteritis and colitis, unspecified; M06.9 Rheumatoid arthritis, unspecified; Z79.899 Other long term (current) drug therapy; Z81.8 Family history of other mental and behavioral disorders; Z82.3 Family history of stroke; Z86.010 Personal history of colon polyps; Z98.51 Tubal ligation status; Z68.43 Body mass index [BMI] 50.0-59.9, adult